=== PATIENT | male | born 1940 | race Caucasian/White ===

== ENCOUNTER → 2018-09-24 07:37 | Outpatient (CLI) | payer MEDICARE, BC, SELFPAY ==
[2018-09-24 08:25] LABS: Add Manual Diff / Slide Review NO; Basophils Percent Auto 0.6 % (0-2); Eosinophils Percent Auto 3.5 % (2-4); Hemoglobin 15.1 g/dL (13.5-17.5); Lymphocytes Percent Auto 16.6 % (25-40); Mean Corpuscular HGB Conc 33.5 % (30-36); Mean Corpuscular Hemoglobin 28.2 PG (26-34); Mean Corpuscular Volume 84.3 fL (80-100); Monocytes Percent Auto 9.5 % (3-14); Neutrophils Absolute Auto 5100 /uL (1500-7000); Neutrophils Percent Auto 69.8 % (50-75); Platelet Count 283 X10^3/uL (150-400); Red Blood Cell Count 5.34 X10^6/uL (4.5-5.9); Red Cell Distribution Width 13.5 % (11.6-14.8); White Blood Cell Count 7.4 X10^3/uL (4.5-11.0)
[2018-09-24 09:14] LABS: Alanine Aminotransferase 30 IU/L (21-72); Albumin 4.5 g/dL (3.5-5.0); Albumin Globulin Ratio 1.5 (1.0-2.8); Alkaline Phosphatase 97 U/L (38-126); Aspartate Aminotransferase 22 IU/L (17-59); BUN Creatinine Ratio 15.4 (6-22); Bilirubin Total 0.6 mg/dL (0.2-1.3); Blood Urea Nitrogen 20 mg/dL (9-20); Calcium 9.5 mg/dL (8.4-10.2); Carbon Dioxide 27 mmol/L (22-32); Chloride 100 mmol/L (98-107); Cholesterol 182 mg/dL (140-199); Estimated Glomerular Filt Rate 53.1 mL/min (>60); Glucose 107 mg/dL (80-110); HDL Cholesterol 55 mg/dL (40-60); HEMOLYSIS < 15 (0-50); LDL Cholesterol Calculated 109 mg/dL (<100); Potassium 4.2 mmol/L (3.4-5.1); Sodium 139 mmol/L (137-145); Total Protein 7.5 g/dL (6.3-8.2); Triglycerides 89 mg/dL (35-150)
[2018-09-24 09:39] LABS: TSH w/ Reflex to FT4 3.38 uIU/mL (0.47-4.68)
== END ==
PROVIDERS: PCP Internal Medicine; Visit Provider Internal Medicine
DX: I10 Essential (primary) hypertension (principal); K21.9 Gastro-esophageal reflux disease without esophagitis
CPT/HCPCS: 36415; 80053; 80061; 84443; 85025

== ENCOUNTER → 2020-02-16 17:00 | Outpatient (CLI) | payer MEDICARE, BC, SELFPAY ==
[2020-02-16 17:40] LABS: Add Manual Diff / Slide Review NO; Basophils Absolute Auto 100 /uL (0-100); Basophils Percent Auto 0.8 % (0-2); Eosinophils Absolute Auto 300 /uL (0-450); Eosinophils Percent Auto 3.6 % (2-4); Hematocrit 39.8 % (41-53); Hemoglobin 13.1 g/dL (13.5-17.5); Lymphocytes Absolute Auto 1200 /uL (1100-4500); Mean Corpuscular HGB Conc 32.8 % (30-36); Mean Corpuscular Hemoglobin 23.8 PG (26-34); Mean Corpuscular Volume 72.7 fL (80-100); Monocytes Absolute Auto 700 /uL (0-900); Monocytes Percent Auto 9.2 % (3-14); Neutrophils Absolute Auto 5200 /uL (1500-7000); Neutrophils Percent Auto 70.4 % (50-75); Platelet Count 250 X10^3/uL (150-400); Red Blood Cell Count 5.47 X10^6/uL (4.5-5.9); Red Cell Distribution Width 17.9 % (11.6-14.8); White Blood Cell Count 7.4 X10^3/uL (4.5-11.0)
[2020-02-16 17:54] LABS: Alanine Aminotransferase 17 IU/L (<50); Albumin 4.7 g/dL (3.5-5.0); Albumin Globulin Ratio 1.5 (1.0-2.8); Alkaline Phosphatase 103 U/L (38-126); Aspartate Aminotransferase 23 IU/L (17-59); Bilirubin Total 0.7 mg/dL (0.2-1.3); Blood Urea Nitrogen 20 mg/dL (9-20); Calcium 9.9 mg/dL (8.4-10.2); Carbon Dioxide 25 mmol/L (22-32); Chloride 101 mmol/L (98-107); Estimated Glomerular Filt Rate 55.4 mL/min (>60); Globulin 3.1 g/dL (1.7-4.1); Glucose 101 mg/dL (80-110); HEMOLYSIS < 15 (0-50); Potassium 4.7 mmol/L (3.4-5.1); Sodium 136 mmol/L (137-145); Total Protein 7.8 g/dL (6.3-8.2)
[2020-02-16 18:40] LABS: TSH w/ Reflex to FT4 2.45 uIU/mL (0.47-4.68)
[2020-02-17 09:07] LABS: HEMOLYSIS < 15 (0-50); Iron 44 ug/dL (49-181)
[2020-02-17 09:17] LABS: Percent Iron Saturation 9 % (20-50); Total Iron Binding Capacity 483 ug/dL (261-462); Transferrin 366 mg/dL (206-381)
== END ==
PROVIDERS: Family Provider Internal Medicine; PCP Internal Medicine; Referring Provider Internal Medicine; Visit Provider Internal Medicine
DX: I10 Essential (primary) hypertension (principal); N18.3 Chronic kidney disease, stage 3 (moderate); R06.02 Shortness of breath
CPT/HCPCS: 36415; 80053; 83540; 83550; 84443; 85025

== ENCOUNTER → 2020-02-23 14:40 | Outpatient (CLI) | payer MEDICARE, BC, SELFPAY ==
[2020-02-24 16:15] LABS: COVID19 Sendout NOT DETECTED (Not Detect)
== END ==
PROVIDERS: Family Provider Internal Medicine; PCP Internal Medicine; Visit Provider Registered Nurse
DX: Z01.812 Encounter for preprocedural laboratory examination (principal)
CPT/HCPCS: 87635

== ENCOUNTER 2020-02-26 12:37 | Day surgery (SDC) | payer MEDICARE, BC, SELFPAY ==
--- NOTE | 2020-02-26 | PATH_ITS ---
[facility] Accession Number: [id number] . 01 Material submitted: . PART A: gastrointestinal site - GASTRIC POLYPS PART B: esophagus - BIOPSY DISTAL ESOPHAGUS . 02 Diagnosis: A. Gastric Polyps: Superficial portions of gastric fundic mucosa x 2 with mildly dilated fundic glands, consistent with fragments of fundic gland polyp x2. Negative for intestinal metaplasia. Negative for dysplasia or malignancy. . B. Biopsy Distal Esophagus: Squamous mucosa with increased intraepithelial eosinophils (up to approximately 12 eosinophils per high-power field). Please see comment. Negative for dysplasia and malignancy. V 02/27/2020 1410 Local . 02 Comment: Part B: There is insufficient histopathologic evidence for a diagnosis of eosinophilic esophagitis. The differential diagnosis includes drug reaction, gastroesophageal reflux, and food allergies. . 02 Electronically signed: . Dinora Serrano MD, Pathologist NPI- [id number] . 01 Gross description: . Part A: GASTRIC POLYPS: Received in formalin are 2 fragment(s) of abad, soft tissue measuring 0.1 x 0.1 x 0.1 cm to 0.3 x 0.2 x 0.2 cm submitted entirely in 1 cassette(s) Part B: BIOPSY DISTAL ESOPHAGUS: Received in formalin are 3 fragment(s) of abad, soft tissue measuring 0.1 x 0.1 x 0.1 cm to 0.3 x 0.2 x 0.2 cm submitted entirely in 1 cassette(s) /AMA 02/27/2020 0009 Local . 02 Pathologist provided ICD-10: K31.7 . 02 CPT . 481587, [id number] Performed at: [address], [place], [place] [id number] MD Wesley Chirinos MD Phone: [phone] Performed at: 02 [facility] [id number] [place] [id number] MD Deanna Otoole MD Phone: [phone]
[2020-02-26 13:11] VITALS: BMI 28.9
[2020-02-26 13:18] VITALS: BP 136/75; PULSE 68; RESP 16; TEMP 36.3; O2SAT 99
[2020-02-26] MEDS: LACTATED RINGERS 1,000 ML 200 ML IV (13:24)
--- NOTE | 2020-02-26 13:58 | PM.PREOP ---
Pre-operative Note COVID-19 COVID-19 status: Negative Result date/Date tested (Pos, Neg/Pending): 02/23/20 Interval Note History & Physical reviewed/Exam performed by Physician: Yes Changes to H&P: No ASA Class (for procedural sedation): II
[2020-02-26] MEDS: LIDOCAINE 4% SOLN 50 ML 20 ML TOP (14:08)
[2020-02-26] MEDS: MIDAZOLAM 5 MG/5 ML VIAL IV (14:09)
[2020-02-26] MEDS: fentaNYL 250 MCG/5 ML INJ IV (14:09)
--- NOTE | 2020-02-26 14:49 | PM.OP.ENDO ---
Operative Date/Time/Diagnoses Date of procedure: 02/26/20 Time of procedure: 14:49 Pre-op diagnosis: Anemia Post-op diagnosis: same Procedure & Clinicians Study performed: Esophagoduodenoscopy Colonoscopy Same procedure as scheduled: Yes Indications: 79-year-old man with new onset microcytic anemia presents for screening EGD and colonoscopy. Surgeon: Arnel Valverde Procedure Notes SCOAP/Timeout: Performed Procedure in detail: Patient placed in left lateral decubitus position. Time out was performed. Procedural sedation was administered with Versed and Fentanyl. A bite block was placed. the scope was inserted into the mouth and advanced through the esophagus and into the stomach. The pylorus was intubated and the duodenum was normal. The scope was retroflexed within the stomach and there was a moderate size hiatal hernia. There were numerous gastric polyps I took several random biopsies of the polyps using the forceps. Hemostasis was observed. The scope was withdrawn into the esophagus the Z line was seen at 35 cm from the incisions. There was mild esophagitis in the distal esophagus and several random biopsies were taken with the forceps. Stomach was desufflated and scope removed. Patient tolerated procedure well. Patient placed in left lateral decubitus position. Time out was performed. Procedural sedation was administered with Versed and Fentanyl. A rectal exam demonstrated external hemorrhoids no internal masses. Colonoscopy scope was placed into the rectum and advanced through the colon to the cecum. The ileocecal valve was identified. The scope was then slowly withdrawn examining colon thoroughly in all directions. The colonoscopy was notable for the following 1. Sigmoid diverticulosis 2. No masses polyps 3. Quality of prep good Scope withdrawal time: 6 Sedation minutes: 30 Findings: polyp (Gastric polyps, mild esophagitis) Specimen(s): other (Gastric polyp, distal esophagus) Impression: Gastric polyps, hiatal hernia, esophagitis Post-procedure Recommendations: Continue medication(s) (Omeprazole) Disposition: same day surgery
[2020-02-26 14:53] VITALS: BP 122/72; PULSE 62; RESP 12; O2SAT 93
[2020-02-26 14:58] VITALS: BP 117/67; PULSE 62; RESP 12; O2SAT 93
[2020-02-26 15:03] VITALS: BP 117/67; PULSE 63; RESP 16; O2SAT 99
[2020-02-26 15:12] VITALS: BP 107/63; PULSE 67; RESP 14; O2SAT 100
== END 2020-02-26 15:25 | disposition home or self-care (01) ==
PROVIDERS: Family Provider Internal Medicine; PCP Internal Medicine; Referring Provider Surgery; Visit Provider Surgery
PROC: 0DJ08ZZ Inspection of Upper Intestinal Tract, Via Natural or Artificial Opening Endoscopic (ICD-10-PCS; CPT 43235; principal; 2020-02-26 13:45)
PROC: 0DJD8ZZ Inspection of Lower Intestinal Tract, Via Natural or Artificial Opening Endoscopic (ICD-10-PCS; CPT 45378; 2020-02-26 13:45)
DX: Z12.11 Encounter for screening for malignant neoplasm of colon (principal); D50.9 Iron deficiency anemia, unspecified; K57.30 Diverticulosis of large intestine without perforation or abscess without bleeding; K31.7 Polyp of stomach and duodenum; K44.9 Diaphragmatic hernia without obstruction or gangrene; K20.9 Esophagitis, unspecified; K64.9 Unspecified hemorrhoids
CPT/HCPCS: 43239; G0121; 99152; 99153; J2250; J3010

== ENCOUNTER → 2020-07-19 14:32 | Outpatient (CLI) | payer MEDICARE, BC, SELFPAY | PROVIDERS: Family Provider Internal Medicine; PCP Internal Medicine; Visit Provider Internal Medicine | DX: R30.0 Dysuria (principal) | CPT/HCPCS: 87077; 87086; 87186 ==

== ENCOUNTER 2020-07-28 12:12 | Emergency (ER) | payer MEDICARE, BC, SELFPAY ==
[2020-07-28] VITALS (7 sets, daily range): BP systolic 124–151; BP diastolic 59–69; PULSE 68–75; RESP 14–18; TEMP 36.5; O2SAT 92–99; BMI 28.5
--- NOTE | 2020-07-28 13:24 | DI.RAD.S_ITS ---
PROCEDURE: XR RIBS RT MIN 3V W CXR 1V INDICATIONS: fall TECHNIQUE: To views of the right ribs were acquired, along with a single view chest. COMPARISON: None. FINDINGS: Surgical changes and devices: None. Bones and chest wall: No fractures or dislocations. No suspicious bony lesions. Overlying soft tissues appear unremarkable. Quality of visualization of the lower ribs in the area of current clinical concern is very limited by overlying upper abdominal structures and also prominent convex rightward scoliosis. Lungs and pleura: No pleural effusions or pneumothorax. Lungs appear clear. Mediastinum: Mediastinal contours appear normal. Heart size is normal. IMPRESSION: No definite fracture found, no pneumothorax seen. Limited study as discussed. Nuclear medicine bone scan follow-up may be warranted if fine usual symptoms persist. Dictated by: Scotty Cote M.D. on 07/28/2020 at 15:26 Approved by: Scotty Cote M.D. on 07/28/2020 at 15:27
[2020-07-28] MEDS: HYDROCODONE/ACET 5/325 TABLET 1 TAB PO (15:46)
[2020-07-28] MEDS: LIDOCAINE PATCH 1 EACH ADH..PATCH TOP (15:47)
--- NOTE | 2020-07-28 16:40 | ED.FALL ---
HPI - Fall <CASH Gruber - Last Filed: 07/28/20 23:35> General Chief Complaint: Fall Stated Complaint: back, right side ribs pain, injury Time Seen by Provider: 07/28/20 15:06 Source: patient Mode of arrival: Ambulatory Limitations: no limitations History of Present Illness HPI Narrative: This is a 80-year-old male, nonsmoker, who has past medical history significant for hypertension, BPH, prostatitis presents to ED with his spouse with chief complain of right lower and posterior rib discomfort after he accidentally tripped and hit right side ribs on the edge of table and fell on right side of body. He denies hitting head or loss of consciousness. Patient denies currently taking anticoagulants. Patient reports pain becomes severe with coughing and movements and rates pain as 8/10 and describes as sharp. Patient denies fever, chills, nausea, vomiting, short of breath, cough, chest pain, dizziness before the fall or currently. Related Data Home Medications Medication Instructions Recorded Confirmed aspirin 81 mg PO QDAY #0 07/20/17 07/19/20 loratadine-pseudoephedrine ER 10 1 tab PO DAILY 09/06/18 07/19/20 mg-240 mg tablet,extended [id number] Previous Rx's Medication Instructions Recorded tadalafil 20 mg tablet 20 mg PO DAILY PRN #7 tab 02/16/20 tamsulosin 0.4 mg capsule 0.4 mg PO QDAY #90 cap 03/18/20 famotidine 20 mg tablet 40 mg PO BEDTIME #60 tab 04/15/20 hydrochlorothiazide 25 mg tablet 25 mg PO DAILY #30 tab 06/16/20 amlodipine 10 mg tablet 10 mg PO DAILY #90 tab 07/10/20 sulfamethoxazole 800 1 tab PO BID #20 tab 07/19/20 mg-trimethoprim 160 mg tablet cyclobenzaprine 5 - 10 mg PO BID PRN #10 tab 07/28/20 hydrocodone-acetaminophen [Herman] 1 tab PO BID PRN #7 tab 07/28/20 lidocaine 1 patch TOP DAILY PRN #30 each 07/28/20 Allergies Allergy/AdvReac Type Severity Reaction Status Date / Time No Known Drug Allergies Allergy Verified 07/19/20 13:50 Review of Systems <CASH Gruber - Last Filed: 07/28/20 23:35> Review of Systems Narrative: General: Denies fever, chills, fatigue, malaise, sweats. Respiratory: Denies dyspnea, cough, wheezing, hemoptysis, sputum. Cardiovascular: Denies chest pain, palpitations, orthopnea, edema. Gastrointestinal: Denies nausea, vomiting, abdominal pain, diarrhea, constipation, melena. : Denies dysuria, frequency, incontinence, hematuria, urinary retention. Musculoskeletal: See HPI Skin: Denies rash, skin lesions, or other. Neurologic: Denies weakness, headache, numbness, change in speech, confusion, seizures, incoordination. 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) History of flexible sigmoidoscopy (Resolved 06/18/14) Hypertension (Chronic 04/13/11) Iron deficiency anemia (Chronic) Keratoacanthoma (Resolved 04/27/17) Left-sided Figueroa's palsy (Resolved) SCCA (squamous cell carcinoma) of skin (Resolved 07/21/09) Scoliosis of lumbosacral spine (Inactive) Spinal stenosis, lumbar region with neurogenic claudication (Resolved) Surgical History History of basal cell carcinoma (BCC) excision (Resolved 07/21/09) History of colon surgery (Acute) History of colonoscopy with polypectomy (Resolved 12/04/13) History of colonoscopy with polypectomy (Resolved 07/20/17) History of lumbar fusion (Resolved 06/07/15) History of squamous cell carcinoma excision (Resolved 07/16/12) Status post epidural steroid injection (Resolved 01/13/15) Status post Mohs surgery (Resolved 04/27/17) Social History household members: spouse occupational status: previously employed Smoking Status: Never smoker alcohol intake: current substance use type: does not use Smoking Status: Never smoker alcohol intake frequency: 0-2 drinks per day Substance Use Type: does not use Exam <CASH Gruber - Last Filed: 07/28/20 23:35> Narrative Exam Narrative: General appearance: well developed, well nourished, in no acute distress. Head: normocephalic, atraumatic, no scalp lesions, non-tender. ENT: Hearing grossly intact. Airway patent. Neck/Thyroid: neck supple, full range of motion, no visible masses or meningeal signs. No JVD, non-tender without lymphadenopathy. Skin: no suspicious rashes, lesions over visible areas. Warm and dry and appropriate color for ethnicity. Heart: no clubbing, no cyanosis, no edema. S1 and S2 normal. RRR w/o murmurs, clicks, or bruits. Lungs: Breathing even and unlabored. No stridor. No accessory muscles used. Able to speak in full sentences. Chest: normal shape and expansion. Tender to palpate on right lower and posterior ribs. No rashes, ecchymosis, erythema, or crepitus. Abdomen: non-obese, non-distended. Neurologic: alert and oriented. Cognitive exam, [employer] and PNS grossly intact on informal exam. Psych: good eye contact, normal affect. Initial Vital Signs Initial Vital Signs: Vital Signs Temperature 97.7 F 07/28/20 12:35 Pulse Rate 69 07/28/20 12:35 Respiratory Rate 17 07/28/20 12:35 Blood Pressure 124/59 L 07/28/20 12:35 Pulse Oximetry 97 07/28/20 12:35 <Casie Salgado DO - Last Filed: 07/29/20 08:04> Initial Vital Signs Initial Vital Signs: Vital Signs Temperature 97.7 F 07/28/20 12:35 Pulse Rate 69 07/28/20 12:35 Respiratory Rate 17 07/28/20 12:35 Blood Pressure 124/59 L 07/28/20 12:35 Pulse Oximetry 97 07/28/20 12:35 Scores <Anshul MolinaCASH - Last Filed: 07/28/20 23:35> GCS [place] coma scale eye opening: Spontaneous [place] coma scale verbal response: Orientated [place] coma scale motor response: Obey commands [place] coma scale total score: 15 Course <CASH Gruber - Last Filed: 07/28/20 23:35> Orders Ordered: Discontinued Medications Hydrocodone Bitart/Acetaminophen (Herman 5/325) 1 tab PO NOW ONE Stop: 07/28/20 15:36 Last Admin: 07/28/20 15:46 Dose: 1 tab Documented by: RSTONE Lidocaine (Lidoderm) 1 each TOP NOW ONE Stop: 07/28/20 15:36 Last Admin: 07/28/20 15:47 Dose: 1 each Documented by: RSTONE Lidocaine (Lidoderm (Remove Patch)) 1 each TOP BEDTIME MICK Vital Signs Vital signs: Vital Signs - 8 hr 07/28/20 15:30 07/28/20 16:13 Pulse Rate 73 71 Respiratory Rate 18 Blood Pressure 150/69 H Pulse Oximetry 96 95 <Casie Salgado DO - Last Filed: 07/29/20 08:04> Orders Ordered: Discontinued Medications Hydrocodone Bitart/Acetaminophen (Herman 5/325) 1 tab PO NOW ONE Stop: 07/28/20 15:36 Last Admin: 07/28/20 15:46 Dose: 1 tab Documented by: RSTONE Lidocaine (Lidoderm) 1 each TOP NOW ONE Stop: 07/28/20 15:36 Last Admin: 07/28/20 15:47 Dose: 1 each Documented by: RSTONE Lidocaine (Lidoderm (Remove Patch)) 1 each TOP BEDTIME MICK Vital Signs Vital signs: Vital Signs - 8 hr 07/28/20 15:30 07/28/20 16:13 Pulse Rate 73 71 Respiratory Rate 18 Blood Pressure 150/69 H Pulse Oximetry 96 95 MDM - Fall <CASH Gruber - Last Filed: 07/28/20 23:35> Differential Diagnosis Differential diagnosis: Likely other (Rib fracture, rib contusion, pneumothorax) Medical Records Attestation: I reviewed the patient's medical records. Imaging Data XR- Ribs and chest RT: Radiologist's Impression: [address] [address] XRay Report Signed Patient: Mohsen Murrieta BMR#: [id number] : 8Acct:[id number] Age/Sex: 80 / MDate of Service: 07/28/20 Loc: ED Accession Number: [id number] Procedure: XR ribs RT min 3V w CXR1V Ordering Provider: Casie Salgado D.O. PROCEDURE: XR RIBS RT MIN 3V W CXR 1V INDICATIONS: fall TECHNIQUE: To views of the right ribs were acquired, along with a single view chest. COMPARISON: None. FINDINGS: Surgical changes and devices: None. Bones and chest wall: No fractures or dislocations. No suspicious bony lesions. Overlying soft tissues appear unremarkable. Quality of visualization of the lower ribs in the area of current clinical concern is very limited by overlying upper abdominal structures and also prominent convex rightward scoliosis. Lungs and pleura: No pleural effusions or pneumothorax. Lungs appear clear. Mediastinum: Mediastinal contours appear normal. Heart size is normal. IMPRESSION: No definite fracture found, no pneumothorax seen. Limited study as discussed. Nuclear medicine bone scan follow-up may be warranted if fine usual symptoms persist. Dictated by: Scotty Cote M.D. on 07/28/2020 at 15:26 Approved by: Scotty Cote M.D. on 07/28/2020 at 15:27 [facility] Narrative Medical decision making narrative: This is this 80 year male who presents to ED with chief complain of right lower and posterior rib pain after he accidentally tripped and fell on the corner of heavy table 2 days ago. Patient denies dyspnea, productive, fever or chills. Lung sounds are clear to auscultate bilaterally with out increased work of breathing. O2 sat range from 92-98% in room air. Physical exam is unremarkable. Chest and rib x-ray does not show pneumonia and no definite fracture due to limited study by overlying upper abdominal structure and also prominent convex right word scoliosis. Patient medicated with lidocaine patch on affected site and 1 Herman in ED. respiratory therapist consulted to teach I/S machine for deep breathing exercises to continue 10 times every hour while his awake to prevent pneumonia. Explained to patient that whether patient has rib fracture or not the treatment is the same for pain management. Patient advised to use [id number] Tylenol and or Motrin as needed for discomfort as baseline discomfort and to use Flexeril and Herman as needed for severe pain with strict medication precautions for sedation. Advised not to concurrently use Flexeril and Herman for the same reason. Return precautions were discussed with patient and he verbalized understanding in agreement with the treatment plan. Discharge Plan Departure Patient Disposition: Home Clinical Impression: Contusion of rib on right side Qualifiers: Encounter type: initial encounter Qualified Code(s): S20.211A - Contusion of right front wall of thorax, initial encounter Fall Qualifiers: Encounter type: initial encounter Qualified Code(s): W19.XXXA - Unspecified fall, initial encounter Discharge Date/Time: 07/28/20 16:20 Instructions: DI for Rib Contusion Activity Restrictions/Additional Instructions: You have been diagnosed with [right side rib contusion. X-ray does not show obvious fracture at this time.]. What to do: *Take your medications as directed. You can continue with Aleve as needed. You can add Tylenol 650 mg up to 3 to 4 times a day as needed for pain. For severe pain can use Herman 1 tab in addition to Tylenol. Flexeril for muscle relaxant and you can use this as well as needed. Lidocaine patch on affected site as needed for pain. The patch stays on for 12 hours and off for 12 hours. Flexeril and Herman are both causing sedation. Please do not drive, drink alcohol, or operate heavy equipments. Try to avoid taking these to medication at the same time since he can cause increase in sedation. Also, eat can cause constipation so please take precautions. Please use I/S machine 10 times a day while your awake to prevent pneumonia while splitting right side ribs. This medication have been transmitted to [facility]. *Follow up with your primary care provider in 2-3 days, call for an appointment. Let them know you were seen in the ED and that we asked you to be seen in follow up. *Return to ED if you have any new, worsening, or concerning symptoms, such as [breathing difficulty, chest pain, fever, productive cough, worsening pain or any acute concerns]. Prescriptions: New lidocaine 5 % adhesive patch,medicated 1 patch TOP DAILY PRN (Reason: pain) Qty: 30 RF: 0 hydrocodone-acetaminophen [Herman] 5-325 mg tablet 1 tab PO BID PRN (Reason: pain) Qty: 7 RF: 0 cyclobenzaprine 5 mg tablet 5 - 10 mg PO BID PRN (Reason: muscle spasm) Qty: 10 RF: 0 No Action aspirin 81 MG tablet,delayed release (DR/EC) 81 mg PO QDAY Qty: 0 RF: 0 tamsulosin [Flomax] 0.4 mg capsule 0.4 mg PO QDAY Qty: 90 RF: 1 hydrochlorothiazide 25 mg tablet 25 mg PO DAILY Qty: 30 RF: 3 amlodipine 10 mg tablet 10 mg PO DAILY Qty: 90 RF: 1 loratadine-pseudoephedrine [Claritin-D 24 Hour] 10-240 mg tablet extended release 24 hr 1 tab PO DAILY RF: 0 tadalafil [Cialis] 20 mg tablet 20 mg PO DAILY PRN (Reason: sexual activity) Qty: 7 RF: 4 famotidine 20 mg tablet 40 mg PO BEDTIME Qty: 60 RF: 3 sulfamethoxazole-trimethoprim 800-160 mg tablet 1 tab PO BID Qty: 20 RF: 0 Referrals: Yaniv Fontana MD [Primary Care Provider] - <Casie Salgado DO - Last Filed: 07/29/20 08:04> Cosign ED Attending Cosignature Attestation: I was immediately available in the department for consultation. This documentation has been reviewed. Supervised by Casie Salgado DO
== END 2020-07-28 16:20 | disposition home or self-care (01) ==
PROVIDERS: Emergency Provider Nurse Practitioner Family; Family Provider Internal Medicine; PCP Internal Medicine
DX: S20.211A Contusion of right front wall of thorax, initial encounter (principal); I10 Essential (primary) hypertension; W19.XXXA Unspecified fall, initial encounter
CPT/HCPCS: 71101; 99283; 99284

== ENCOUNTER → 2020-09-11 10:26 | Outpatient (CLI) | payer MEDICARE, BC, SELFPAY | PROVIDERS: Family Provider Internal Medicine; PCP Internal Medicine; Visit Provider Physician Assistant | DX: R30.9 Painful micturition, unspecified (principal) | CPT/HCPCS: 87077; 87086; 87186 ==

== ENCOUNTER → 2022-03-02 06:57 | Outpatient (CLI) | payer MEDICARE, BC, SELFPAY ==
[2022-03-02 08:42] LABS: Alanine Aminotransferase 17 IU/L (<50); Albumin 4.8 g/dL (3.5-5.0); Albumin Globulin Ratio 1.5 (1.0-2.8); Alkaline Phosphatase 83 U/L (38-126); Aspartate Aminotransferase 22 IU/L (17-59); BUN Creatinine Ratio 19.3 (6-22); Bilirubin Total 1.1 mg/dL (0.2-1.3); Blood Urea Nitrogen 26 mg/dL (9-20); Calcium 9.6 mg/dL (8.4-10.2); Carbon Dioxide 29 mmol/L (22-32); Chloride 98 mmol/L (98-107); Cholesterol 180 mg/dL (140-199); Estimated Glomerular Filt Rate 52 mL/min (>60); Globulin 3.1 g/dL (1.7-4.1); Glucose 107 mg/dL (80-110); HDL Cholesterol 59 mg/dL (40-60); HEMOLYSIS < 15 (0-50); LDL Cholesterol Calculated 97 mg/dL (<100); Potassium 4.2 mmol/L (3.4-5.1); Sodium 135 mmol/L (137-145); Total Protein 7.9 g/dL (6.3-8.2); Triglycerides 118 mg/dL (35-150)
== END ==
PROVIDERS: Family Provider Internal Medicine; PCP Internal Medicine; Referring Provider Internal Medicine; Visit Provider Internal Medicine
DX: I10 Essential (primary) hypertension (principal); K20.90 Esophagitis, unspecified without bleeding; K21.9 Gastro-esophageal reflux disease without esophagitis; N13.8 Other obstructive and reflux uropathy; N40.1 Benign prostatic hyperplasia with lower urinary tract symptoms
CPT/HCPCS: 36415; 80053; 80061

== ENCOUNTER → 2022-03-19 09:34 | Outpatient (CLI) | payer MEDICARE, BC, SELFPAY | PROVIDERS: Family Provider Internal Medicine; PCP Internal Medicine; Visit Provider Physician Assistant | DX: R30.0 Dysuria (principal) | CPT/HCPCS: 87077; 87086; 87186 ==

== ENCOUNTER → 2022-07-19 14:23 | Outpatient (CLI) | payer MEDICARE, BC, SELFPAY | PROVIDERS: Family Provider Internal Medicine; PCP Internal Medicine; Visit Provider Nurse Practitioner Family | DX: R30.0 Dysuria (principal) | CPT/HCPCS: 87077; 87086; 87186 ==

== ENCOUNTER → 2022-08-30 10:48 | Outpatient (CLI) | payer MEDICARE, BC, SELFPAY | PROVIDERS: Family Provider Internal Medicine; PCP Internal Medicine; Visit Provider Nurse Practitioner Family | DX: R30.0 Dysuria (principal) | CPT/HCPCS: 87077; 87086; 87186 ==

== ENCOUNTER → 2023-09-24 14:54 | Outpatient (CLI) | payer MEDICARE, BC, SELFPAY ==
[2023-09-24 16:08] LABS: Add Manual Diff / Slide Review NO; Basophils Absolute Auto 0 /uL (0-100); Basophils Percent Auto 0.6 % (0-2); Eosinophils Absolute Auto 100 /uL (0-450); Eosinophils Percent Auto 1.6 % (2-4); Hematocrit 39.9 % (41-53); Lymphocytes Absolute Auto 1000 /uL (1100-4500); Lymphocytes Percent Auto 13.3 % (25-40); Mean Corpuscular Hemoglobin 30.1 PG (26-34); Mean Corpuscular Volume 86.1 fL (80-100); Monocytes Absolute Auto 600 /uL (0-900); Monocytes Percent Auto 8.6 % (3-14); Neutrophils Absolute Auto 5600 /uL (1500-7000); Neutrophils Percent Auto 75.9 % (50-75); Platelet Count 244 X10^3/uL (150-400); Red Blood Cell Count 4.64 X10^6/uL (4.5-5.9); Red Cell Distribution Width 13.5 % (11.6-14.8); White Blood Cell Count 7.3 X10^3/uL (4.5-11.0)
[2023-09-24 16:22] LABS: Alanine Aminotransferase 24 IU/L (<50); Albumin 4.5 g/dL (3.5-5.0); Albumin Globulin Ratio 1.3 (1.0-2.8); Alkaline Phosphatase 71 U/L (38-126); Aspartate Aminotransferase 28 IU/L (17-59); BUN Creatinine Ratio 26.8 (6-22); Bilirubin Total 1.1 mg/dL (0.2-1.3); Blood Urea Nitrogen 30 mg/dL (9-20); Carbon Dioxide 28 mmol/L (22-32); Chloride 98 mmol/L (98-107); Estimated Glomerular Filt Rate > 60 mL/min (>60); Globulin 3.5 g/dL (1.7-4.1); Glucose 94 mg/dL (80-110); HEMOLYSIS 34 (0-50); Potassium 4.2 mmol/L (3.4-5.1); Sodium 135 mmol/L (137-145)
== END ==
PROVIDERS: Family Provider Internal Medicine; PCP Internal Medicine; Referring Provider Internal Medicine; Visit Provider Internal Medicine
DX: D50.9 Iron deficiency anemia, unspecified (principal); K20.90 Esophagitis, unspecified without bleeding; N18.30 Chronic kidney disease, stage 3 unspecified; I10 Essential (primary) hypertension
CPT/HCPCS: 36415; 80053; 85025

== ENCOUNTER 2025-04-05 10:28 | Emergency (ER) | payer MEDICARE, BC, SELFPAY ==
[2025-04-05] VITALS (9 sets, daily range): BP systolic 134–166; BP diastolic 63–75; PULSE 56–78; RESP 18; TEMP 36.8; O2SAT 86–99; BMI 27.1
--- NOTE | 2025-04-05 11:51 | DI.RAD.S_ITS ---
PROCEDURE: XR SHOULDER RT MIN 2V INDICATIONS: fall TECHNIQUE: 3 views of the shoulder were acquired. COMPARISON: None. FINDINGS: Bones: No fractures or dislocations. Degenerative changes of the acromioclavicular and glenohumeral joints are shown. No suspicious bony lesions. Visualized ribs appear intact. Soft tissues: No suspicious soft tissue calcifications. IMPRESSION: No acute bony abnormality. Dictated by: Columba Thomas M.D. on 04/05/2025 at 11:50 Approved by: Columba Thomas M.D. on 04/05/2025 at 11:52
--- NOTE | 2025-04-05 11:51 | DI.CT.S_ITS ---
PROCEDURE: CT HEAD/BRAIN WO CON INDICATIONS: head trauma TECHNIQUE: Noncontrast 4.5 mm thick angled axial sections acquired from the foramen magnum to the vertex, with coronal and sagittal reformats. For radiation dose reduction, the following was used: automated exposure control, adjustment of mA and/or kV according to patient size. COMPARISON: None. FINDINGS: Image quality: Diagnostic. CSF spaces: Basal cisterns are patent. No extra-axial fluid collections. The ventricles are symmetric in size and shape. Brain: No intracranial bleeds or mass effect. There is cerebral volume loss, with resultant ventricular and sulcal prominence. There are periventricular and deep white matter chronic small vessel ischemic changes. There is intracranial internal carotid artery atherosclerosis. Skull and face: Calvarium and visualized facial bones appear intact, without suspicious lesions. Sinuses: Visualized sinuses and mastoids are clear. IMPRESSION: No acute intracranial pathology. Dictated by: Columba Thomas M.D. on 04/05/2025 at 11:19 Approved by: Columba Thomas M.D. on 04/05/2025 at 11:21
--- NOTE | 2025-04-05 11:52 | DI.RAD.S_ITS ---
[facility] ROCEDURE: XR WRIST RT MIN 3V INDICATIONS: fall TECHNIQUE: 4 views of the wrist were acquired. COMPARISON: None. FINDINGS: Bones: There is an ulnar styloid fracture with displacement of the fracture fragment . No other fractures or dislocations. No suspicious bony lesions. Degenerative changes are seen throughout the wrist Soft tissues: No suspicious soft tissue calcifications. IMPRESSION: Age-indeterminate ulnar styloid fracture. Correlate with point tenderness over this area. Dictated by: Columba Thomas M.D. on 04/05/2025 at 11:52 Approved by: Columba Thomas M.D. on 04/05/2025 at 11:54
[2025-04-05] MEDS: BACITRACIN OINT 0.9 GM PCKT 4 APPLIC TOP (11:54)
[2025-04-05] MEDS: LIDOCAINE/PRILOCAINE 5 GM TOP (12:44)
[2025-04-05] MEDS: SILVER NITRATE STICK 1 EACH TOP (13:28)
--- NOTE | 2025-04-22 17:35 | ED.FALL ---
HPI - Fall General Chief Complaint: Fall Stated Complaint: Fell down stairs; hit head and LT hand/arm cuts Time Seen by Provider: 04/05/25 11:08 Source: patient Mode of arrival: Ambulatory History of Present Illness HPI Narrative: 85 yo m prior to arrival via paramedics had a fall down 2-3 steps and hit his head and left hand and arm, he has some abrasions over left hand and arm but no open wound or bleeding from his head currently, he is at baseline as far as mental status is currently. he takes a baby asa daily. no other symtpoms. Related Data Home Medications ?Medication ?Instructions ?Recorded ?Confirmed aspirin 81 mg tablet,delayed 81 mg PO QDAY ##0 07/20/17 04/13/25 release Previous Rx's ?Medication ?Instructions ?Recorded omeprazole 40 mg capsule,delayed 40 mg PO BID #180 caps 03/02/25 release tamsulosin 0.4 mg capsule (Flomax) 0.8 mg (2 x 0.4 mg) PO QDAY #180 03/02/25 caps citalopram 10 mg tablet 10 mg PO DAILY #90 tabs 03/12/25 fludrocortisone 0.1 mg tablet 0.1 mg PO DAILY #90 tabs 04/13/25 Allergies Allergy/AdvReac Type Severity Reaction Status Date / Time No Known Drug Allergies Allergy Verified 04/13/25 11:07 Review of Systems Review of Systems ROS Unobtainable: All systems reviewed & are unremarkable except as noted in HPI and below Patient History Medical History (Updated 04/22/25 @ 17:52 by David Ceja MD) Fracture of ulnar styloid Depression Stool incontinence BPH w urinary obs/LUTS Iron deficiency anemia Esophagitis Elevated PSA Chronic renal failure, stage 3 (moderate) History of adenomatous polyp of colon Hypertension (04/13/11) History of flexible sigmoidoscopy (06/18/14) 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) SCCA (squamous cell carcinoma) of skin (07/21/09) BCC (basal cell carcinoma of skin) (07/16/12) Scoliosis of lumbosacral spine Spinal stenosis, 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 GERD (gastroesophageal reflux disease) 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) Surgical History History of colon surgery History of colonoscopy with polypectomy (07/20/17) History of colonoscopy with polypectomy (12/04/13) Status post Mohs surgery (04/27/17) History of basal cell carcinoma (BCC) excision (07/21/09) History of squamous cell carcinoma excision (07/16/12) History of lumbar fusion (06/07/15) Status post epidural steroid injection (01/13/15) Social History household members: spouse occupational status: previously employed alcohol intake: current substance use type: does not use Smoking Status: Never smoker alcohol intake frequency: 0-2 drinks per day Exam Narrative Exam Narrative: gen: head has mild contusion over back of head without any active bleeding currently but does have open 2-3mm wound on top of scalp area eyes: pupils both equally reactive neck: supple, no lymphadenopathy cv: regular rate rhythm lungs: clear to auscultation abd: soft, nontender, nondistended, pos bs ext: left arm: has scabbing and open wound area not actively bleeding, left wrist some pain with rotation/flexion , nv intact Initial Vital Signs Initial Vital Signs: Vital Signs Pulse Rate 78 04/05/25 10:33 Blood Pressure 138/72 04/05/25 10:33 Pulse Oximetry 98 04/05/25 10:33 Procedures Laceration Repair Laceration 1: Time of procedure: 14:00 Site: scalp Size (cm): 3.0 Description: linear and clean Depth: simple, single layer Local Anesthetic: other anesthetic (prilocaine cream) Amount of anesthesia used (mL): 2 Pre-repair: wound explored, irrigated extensively and deep structures intact Skin layer closed with: eunice (2) Course Course Course Narrative: will get imaging to rule out cranial bleed or fracture, pain stable at the moment , will require 2 eunice for laceration over scalp area Orders Ordered: Discontinued Medications Bacitracin (Bacitracin Oint 0.9 Gm Pckt) 4 applic TOP NOW ONE Stop: 04/05/25 11:52 Last Admin: 04/05/25 11:54 Dose: 4 applic Documented By: LM Lidocaine/Prilocaine (Lidocaine/Prilocaine 5 Gm) 5 gm TOP NOW ONE Stop: 04/05/25 12:35 Last Admin: 04/05/25 12:44 Dose: 5 gm Documented By: GILMA Silver Nitrate/Potassium Nitrate (Silver Nitrate Stick) 1 each TOP NOW ONE Stop: 04/05/25 13:25 Last Admin: 04/05/25 13:28 Dose: 1 each Documented By: GILMA MDM - Fall Differential Diagnosis Differential diagnosis: Likely syncope, compression fracture, concussion with loss of consciousness and other (intracranial injury ) Imaging Data CT scan - head: Radiologist's Impression: No acute intracranial pathology. Dictated by: Columba Thomas M.D. on 04/05/2025 at 11:19 Approved by: Columba Thomas M.D. on 04/05/2025 at 11:21 Extremity x-ray #1: Radiologist's Impression: Age-indeterminate ulnar styloid fracture. Correlate with point tenderness over this area. Dictated by: Columba Thomas M.D. on 04/05/2025 at 11:52 Approved by: Columba Thomas M.D. on 04/05/2025 at 11:54 [facility] Narrative Medical decision making narrative: advised that there is no intracranial bleed noted, can f/up for staple removal in 5-7 days with pcp, age indeterminate ulnar styloid fracture mentioned, brace given , can re xray in one week if not healing and fup with orthopedic surgery Discharge Plan Departure Patient Disposition: Home Clinical Impression: Laceration of head Qualifiers: Encounter type: initial encounter Location of open wound of head: scalp Foreign body presence: without foreign body Qualified Code(s): S01.01XA - Laceration without foreign body of scalp, initial encounter Fracture of ulnar styloid Qualifiers: Encounter type: initial encounter Fracture type: closed Fracture alignment: nondisplaced Laterality: left Qualified Code(s): S52.615A - Nondisplaced fracture of left ulna styloid process, initial encounter for closed fracture Instructions: DI for Forearm Fracture, DI for Laceration Repair -- [place] Activity Restrictions/Additional Instructions: Keep wound area clean, do not rinse and wash in 24 hours. Follow-up sooner for any signs of infection of redness warmth or drainage. Follow-up in 1 week for staple removal. Follow-up on ulnar styloid fracture of his right wrist if pain in that area persists with Orthopedic surgery. Most likely a chronic fracture. Prescriptions: No Action aspirin 81 MG tablet,delayed release (DR/EC) 81 mg PO QDAY Qty: 0 tamsulosin [Flomax] 0.4 mg capsule 0.8 mg PO QDAY Qty: 180 3RF omeprazole 40 mg capsule,delayed release(DR/EC) 40 mg PO BID Qty: 180 3RF citalopram 10 mg tablet 10 mg PO DAILY Qty: 90 3RF fludrocortisone 0.1 mg tablet 0.1 mg PO DAILY Qty: 90 3RF Referrals: Yaniv Fontana MD [Primary Care Provider, Internal Medicine] Stand Alone Forms: Patient Portal/API
== END 2025-04-05 13:54 | disposition home or self-care (01) ==
PROVIDERS: Emergency Provider Family Medicine; Family Provider Internal Medicine; PCP Internal Medicine
DX: S01.01XA Laceration without foreign body of scalp, initial encounter (principal); S52.615A Nondisplaced fracture of left ulna styloid process, initial encounter for closed fracture; S60.512A Abrasion of left hand, initial encounter; W10.9XXA Fall (on) (from) unspecified stairs and steps, initial encounter
CPT/HCPCS: 12002; 70450; 73030; 73110; 99284

== ENCOUNTER → 2025-04-06 10:46 | Outpatient (CLI) | payer MEDICARE, BC, SELFPAY ==
[2025-04-06 11:16] LABS: Add Manual Diff / Slide Review NO; Hematocrit 36.6 % (41-53); Hemoglobin 12.9 g/dL (13.5-17.5); Lymphocytes Absolute Auto 600 /uL (1100-4500); Mean Corpuscular HGB Conc 35.2 % (30-36); Mean Corpuscular Hemoglobin 29.3 PG (26-34); Mean Corpuscular Volume 83.3 fL (80-100); Platelet Count 265 X10^3/uL (150-400)
[2025-04-06 11:40] LABS: Alanine Aminotransferase 19 IU/L (<50); Albumin 4.5 g/dL (3.5-5.0); Albumin Globulin Ratio 1.5 (1.0-2.8); Alkaline Phosphatase 98 U/L (38-126); Blood Urea Nitrogen 26 mg/dL (9-20); Calcium 9.8 mg/dL (8.4-10.2); Carbon Dioxide 28 mmol/L (22-32); Chloride 93 mmol/L (98-107); Estimated Glomerular Filt Rate > 60 mL/min (>60); Globulin 3.1 g/dL (1.7-4.1); Glucose 102 mg/dL (70-99); HEMOLYSIS < 15 (0-50); Magnesium 2.0 mg/dL (1.6-2.3); Potassium 3.6 mmol/L (3.4-5.1); Sodium 132 mmol/L (137-145); Total Protein 7.6 g/dL (6.3-8.2)
[2025-04-06 13:19] LABS: Appearance Urine UA CLOUDY; Bilirubin Urine UA NEGATIVE (NEGATIVE); Color Urine UA YELLOW; Glucose Urine UA NEGATIVE (Negative); Ketones Urine UA TRACE (NEGATIVE); Leukocyte Esterase Urine UA 2+ (NEGATIVE); Nitrite Urine UA NEGATIVE (Negative); Occult Blood Urine UA TRACE-INTACT (Negative); Protein Urine UA TRACE (Negative); Specific Gravity Urine UA 1.020 (1.000-1.035); Urobilinogen Urine UA 1.0 E.U./dL (0.2); pH Urine UA 6.0 (4.5-8.0)
[2025-04-06 13:37] LABS: Culture Indicated Urine Specimen Cultured
== END ==
PROVIDERS: Family Provider Internal Medicine; PCP Internal Medicine; Referring Provider Internal Medicine; Visit Provider Internal Medicine
DX: I10 Essential (primary) hypertension (principal); N18.31 Chronic kidney disease, stage 3a; N39.0 Urinary tract infection, site not specified
CPT/HCPCS: 36415; 80053; 81001; 83735; 85025; 87077; 87086

== ENCOUNTER → 2025-04-27 11:44 | Outpatient (CLI) | payer MEDICARE, BC, SELFPAY ==
[2025-04-27 13:41] LABS: Appearance Urine UA CLEAR; Bilirubin Urine UA NEGATIVE (NEGATIVE); Color Urine UA YELLOW; Glucose Urine UA NEGATIVE (Negative); Ketones Urine UA NEGATIVE (NEGATIVE); Leukocyte Esterase Urine UA TRACE (NEGATIVE); Nitrite Urine UA NEGATIVE (Negative); Occult Blood Urine UA 1+ (Negative); Protein Urine UA TRACE (Negative); Specific Gravity Urine UA 1.015 (1.000-1.035); Urobilinogen Urine UA 1.0 E.U./dL (0.2); pH Urine UA 6.0 (4.5-8.0)
[2025-04-27 13:47] LABS: Culture Indicated Urine Specimen Cultured
== END ==
PROVIDERS: Family Provider Internal Medicine; PCP Internal Medicine; Referring Provider Internal Medicine; Visit Provider Internal Medicine
DX: N40.1 Benign prostatic hyperplasia with lower urinary tract symptoms (principal); N13.8 Other obstructive and reflux uropathy
CPT/HCPCS: 81001; 87086

== ENCOUNTER 2025-07-06 11:46 | Emergency (ER) | payer MEDICARE, BC, SELFPAY ==
[2025-07-06] VITALS (13 sets, daily range): BP systolic 168–199; BP diastolic 70–123; PULSE 56–66; RESP 16–20; TEMP 36.8; O2SAT 97–100; BMI 26.4
--- NOTE | 2025-07-06 12:23 | DI.RAD.S_ITS ---
PROCEDURE: XR CHEST 1V INDICATIONS: Chest Pain TECHNIQUE: One view of the chest was acquired. COMPARISON: None. FINDINGS: Surgical changes and devices: None. Lungs and pleura: Lungs are clear. No pleural effusions or pneumothorax. Mediastinum: Mediastinal contours appear normal. Heart size is normal. Calcifications of the thoracic aorta. Bones and chest wall: No suspicious bony lesions. Dextroscoliosis. Overlying soft tissues appear unremarkable. IMPRESSION: No acute cardiopulmonary abnormality is seen. Dictated by: Leonard Catherine M.D. on 07/06/2025 at 13:05 Approved by: Leonard Catherine M.D. on 07/06/2025 at 13:06
--- NOTE | 2025-07-06 12:23 | EKG_ITS ---
[address] [address] Test Date: 2025-07-06 Pat Name: Mohsen Murrieta Department: Room: Gender: Male End User Consultant: LISSET : 1940 Requested By: Order Number: [id number] Reading MD: Yaniv Fontana MD Measurements Intervals [place] Rate: 58 P: 101 CT: 192 QRS: 51 QRSD: 130 T: 51 QT: 444 QTc: 435 Interpretive Statements Sinus bradycardia Right bundle branch block NO PRIOR TRACING Electronically Signed On 07-06-2025 16:18:03 PDT by Yaniv Fontana MD
[2025-07-06 12:51] LABS: Add Manual Diff / Slide Review NO; Hematocrit 37.9 % (41-53); Hemoglobin 12.9 g/dL (13.5-17.5); Lymphocytes Absolute Auto 600 /uL (1100-4500); Mean Corpuscular HGB Conc 34.2 % (30-36); Mean Corpuscular Hemoglobin 28.8 PG (26-34); Mean Corpuscular Volume 84.1 fL (80-100); Platelet Count 242 X10^3/uL (150-400)
[2025-07-06 12:54] LABS: INR 1.0 (0.9-1.3); Prothrombin Time 11.5 SECONDS (9.4-12.5)
[2025-07-06 12:57] LABS: PTT Partial Thromboplastin Tim 30 SECONDS (25.1-36.5)
[2025-07-06 13:00] LABS: Alanine Aminotransferase 18 IU/L (<50); Albumin 4.4 g/dL (3.5-5.0); Albumin Globulin Ratio 1.3 (1.0-2.8); Alkaline Phosphatase 85 U/L (38-126); Blood Urea Nitrogen 24 mg/dL (9-20); Calcium 9.4 mg/dL (8.4-10.2); Carbon Dioxide 26 mmol/L (22-32); Chloride 101 mmol/L (98-107); Creatine Kinase 116 U/L (55-170); Estimated Glomerular Filt Rate > 60 mL/min (>60); Globulin 3.4 g/dL (1.7-4.1); Glucose 99 mg/dL (70-99); HEMOLYSIS 26 (0-50); Lipase 85 U/L (23-300); Magnesium 2.1 mg/dL (1.6-2.3); Potassium 4.2 mmol/L (3.4-5.1); Sodium 135 mmol/L (137-145); Total Protein 7.8 g/dL (6.3-8.2)
[2025-07-06 13:10] LABS: NT-proBNP (BNP-Adult 18+) 569 pg/mL (<450); Troponin I < 0.012 ng/mL (0.01-0.034)
[2025-07-06] MEDS: ASPIRIN 81 MG CHEW TAB 324 MG PO (13:51)
--- NOTE | 2025-07-06 14:21 | PC.NURSE ---
Pt drove himself to primary care with no scheduled apt and was unsure of why he was there. 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 When this RN approached him to provide care, Pt stated, this is dumb. can anyone tell me why im here? This RN explained he is here because he complained of L sided chest pain to which he said, no i didnt, and i dont need to be here. im leaving. consulted to verify decisional capacity. Pt A/O x4- deemed to have capacity to leave.
--- NOTE | 2025-07-06 14:42 | DI.CT.S_ITS ---
PROCEDURE: CT HEAD/BRAIN WO CON INDICATIONS: fall with confusion TECHNIQUE: Noncontrast 4.5 mm thick angled axial sections acquired from the foramen magnum to the vertex, with coronal and sagittal reformats. For radiation dose reduction, the following was used: automated exposure control, adjustment of mA and/or kV according to patient size. COMPARISON: [facility], CT, CT HEAD/BRAIN WO CON, 04/05/2025, 11:54. FINDINGS: Image quality: Diagnostic. CSF spaces: Basal cisterns are patent. No extra-axial fluid collections. The ventricles are symmetric in size and shape. Brain: No intracranial bleeds or mass effect. There is cerebral volume loss, with resultant ventricular and sulcal prominence. There are periventricular and deep white matter chronic small vessel ischemic changes. There is intracranial internal carotid artery atherosclerosis. Skull and face: Calvarium and visualized facial bones appear intact, without suspicious lesions. Sinuses: Visualized sinuses and mastoids are clear. IMPRESSION: No acute intracranial pathology. Dictated by: Singh Shea M.D. on 07/06/2025 at 15:29 Approved by: Singh Shea M.D. on 07/06/2025 at 15:30
--- NOTE | 2025-07-06 14:43 | PC.NURSE ---
Md to bedside again to ask Pt for consent to CT. Pt becomes verbally aggressive, suspicious of staff, and is unable to state the risks of leaving AMA. Decisional capacity is in question and Pt not allowed to leave per MD.
--- NOTE | 2025-07-06 15:57 | ED_ITS ---
HPI - General Adult General Chief complaint: Dizziness Stated complaint: dizziness w/frequent falls at home (alone) Time Seen by Provider: 07/06/25 15:18 Source: patient Mode of arrival: Wheelchair History of Present Illness HPI narrative: 85-year-old gentleman with increasing falls recently when living independently at home with progressive cognitive issues of which his primary care physician daughter and son are aware. His is currently at [facility] facility in a 2 bedroom space. Patient presented to urgent care this morning noting that he had a bruise to his left small finger after a fall slipping outside in the grass today. He is not complaining of any other injuries. Because of his confusion and multiple bruises he was escorted to the emergency department for further evaluation. Patient notes that he is unsteady, feels like he is always ?on a boat?. He does have a cane. He is still driving and apparently drove himself to urgent care earlier today. He states that his doctor took him off all of his medications recently. He is not complaining any pain, nausea, vomiting, abdominal discomfort constipation or diarrhea. No recent fevers, no headaches. Related Data Home Medications ?Medication ?Instructions ?Recorded ?Confirmed aspirin 81 mg tablet,delayed 81 mg PO QDAY ##0 7 07/06/25 release Previous Rx's ?Medication ?Instructions ?Recorded omeprazole 40 mg capsule,delayed 40 mg PO BID #180 cap s 03/02/25 release fludrocortisone 0.1 mg tablet 0.1 mg PO DAILY #90 tabs 04/13/25 tamsulosin 0.4 mg capsule (Flomax) 0.4 mg PO BID #180 caps 04/27/25 quetiapine 25 mg tablet 25 mg PO BEDTIME #90 tabs Allergies Allergy/AdvReac Type Severity Reaction Status Date / Time No Known Drug Allergies Allergy Verified 06/15/25 14:13 Review of Systems Review of Systems Narrative: Pertinent positive and negative findings as per HPI 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) SCCA (squamous cell carcinoma) of skin (07/21/09) BCC (basal cell carcinoma of skin) (07/16/12) Scoliosis of lumbosacral spine Spinal stenosis, 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 GERD (gastroesophageal reflux disease) 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) Surgical History History of colon surgery History of colonoscopy with polypectomy (07/20/17) History of colonoscopy with polypectomy (12/04/13) Status post Mohs surgery (04/27/17) History of basal cell carcinoma (BCC) excision (07/21/09) History of squamous cell carcinoma excision (07/16/12) History of lumbar fusion (06/07/15) Status post epidural steroid injection (01/13/15) Social History household members: spouse occupational status: previously employed Smoking Status: Never smoker alcohol intake: current substance use type: does not use Smoking Status: Never smoker alcohol intake frequency: 0-2 drinks per day Exam Initial Vital Signs Initial Vital Signs: Vital Signs Temperature 98.3 F 07/06/25 11:52 Pulse Rate 61 07/06/25 11:52 Respiratory Rate 18 07/06/25 11:52 Blood Pressure 168/73 H 07/06/25 11:52 Pulse Oximetry 98 07/06/25 11:52 Oxygen Delivery Method Room Air 07/06/25 11:52 General: Frail, older appearing currently is alert and oriented to person, time, place, events and home address HEENT: Moist mucous membranes, normal sclera with reactive pupils, Respiratory: Lungs are clear to auscultation, no wheezing no rales no rhonchi. Full and symmetrical air movement Cardiac: Regular rate and rhythm no murmurs no bruits Abdomen: Soft, nontender, no rebound or guarding, no flank pain Skin: Multiple areas of bruising and contusion with very thin skin. A significant bruising to the ulnar side of his left hand extending into the left small finger. Neurologic: Slowed wide-based unsteady gait. Nonfocal exam. Currently oriented x3 Extremities: Upper extremity bruising bruising to the left small finger but unrestricted and nonpainful range of motion with the small finger. Psych: Cooperative, poor overall insight Course Orders Ordered: ED Orders 07/06/25 12:23 XR chest 1V Stat EKG-12 Lead Stat 07/06/25 12:35 Complete Blood Count AUTO DIFF Stat Comprehensive Metabolic Panel Stat Lipase Stat Magnesium Stat NT-proBNP (BNP-Adult 18+) Stat PTT Partial Thromboplastin Jeronimo Stat Prothrombin Time INR Stat Troponin & CK Cardiac Panel Stat 07/06/25 14:42 CT head/brain wo con Stat Discontinued Medications Aspirin (Aspirin 81 Mg Chew Tab) 324 mg PO NOW ONE Stop: 07/06/25 12:24 Last Admin: 07/06/25 13:51 Dose: 243 mg Documented By: ADITYA Vital Signs Vital signs: Vital Signs - 8 hr 07/06/25 11:52 07/06/25 13:41 07/06/25 13:42 Temperature 98.3 F Pulse Rate 61 57 L 56 L Respiratory Rate 18 Blood Pressure 168/73 H Pulse Oximetry 98 100 99 Oxygen Delivery Method Room Air Room Air 07/06/25 13:42 07/06/25 14:00 07/06/25 14:01 Temperature Pulse Rate 64 63 Respiratory Rate Blood Pressure 176/79 H Pulse Oximetry 97 100 Oxygen Delivery Method 07/06/25 14:01 07/06/25 14:30 07/06/25 14:30 Temperature Pulse Rate 66 Respiratory Rate 18 Blood Pressure 180/79 H 191/84 H Pulse Oximetry 100 Oxygen Delivery Method Medical Decision Making Lab Data 07/06/25 12:35 07/06/25 12:35 Labs: Lab Results 07/06/25 Range/Units 12:35 WBC 7.9 (4.5-11.0) X10^3/uL RBC 4.50 (4.5-5.9) X10^6/uL Hgb 12.9 L (13.5-17.5) g/dL Hct 37.9 L (41-53) % MCV 84.1 (80-100) fL MCH 28.8 (26-34) PG MCHC 34.2 (30-36) % RDW 14.4 (11.6-14.8) % Plt Count 242 (150-400) X10^3/uL Neut % (Auto) 84.8 H (50-75) % Lymph % (Auto) 7.0 L (25-40) % [place] % (Auto) 7.1 (3-14) % Eos % (Auto) 0.7 L (2-4) % Baso % (Auto) 0.4 (0-2) % Neut # (Auto) 6700 (1662-1070) /uL Lymph # (Auto) 600 L (8583-4274) /uL Jefferson # (Auto) 600 (0-900) /uL Eos # (Auto) 100 (0-450) /uL Baso # (Auto) 0 (0-100) /uL PT 11.5 (9.4-12.5) SECONDS INR 1.0 (0.9-1.3) APTT 30 (25.1-36.5) SECONDS Sodium 135 L (137-145) mmol/L Potassium 4.2 (3.4-5.1) mmol/L Chloride 101 (98-107) mmol/L Carbon Dioxide 26 (22-32) mmol/L BUN 24 H (9-20) mg/dL Creatinine 1.09 (0.66-1.25) mg/dL Estimated GFR > 60 (>60) mL/min BUN/Creatinine Ratio 22.0 (6-22) Glucose 99 (70-99) mg/dL Calcium 9.4 (8.4-10.2) mg/dL Magnesium 2.1 (1.6-2.3) mg/dL Total Bilirubin 1.1 (0.2-1.3) mg/dL AST 28 (17-59) IU/L ALT 18 (<50) IU/L Alkaline Phosphatase 85 (38-126) U/L Total Creatine Kinase 116 (55-170) U/L Troponin I < 0.012 (0.01-0.034) ng/mL NT-Pro-B Natriuret Pep 569 H (<450) pg/mL Total Protein 7.8 (6.3-8.2) g/dL Albumin 4.4 (3.5-5.0) g/dL Globulin 3.4 (1.7-4.1) g/dL Albumin/Globulin Ratio 1.3 (1.0-2.8) Lipase 85 (23-300) U/L MDM Narrative Medical decision making narrative: CC: Falls, concern for increasing cognitive impairment Complicating co-morbidities: Currently living independently, currently taking no medications Data collected from: patient, nursing staff, daughter who lives in the [place] area Social determinants of health that may influence the patients condition: Progressive cognitive decline and ragged determine ism to continue at home Medical records reviewed: Notes from his primary care physician approximately a month ago reviewed similar discussions at that time Differential considered: Acute infection, intracranial hemorrhage, other infection or metastatic disease that could be impairing his cognitive decline, progressive baseline cognitive deficit Exam documented above, pertinent findings include: Seems to be much more alert than previously described, conversant, with his cane is able to get out of bed and to the bathroom with difficulty Lab Test results independently reviewed as above. Pertinent findings: Baseline labs do not show evidence of infection, anemia, electrolyte abnormalities, renal dysfunction, liver dysfunction No evidence of acute coronary BNP is age-related appropriate Independently reviewed EKG: EKG shows sinus bradycardia at a rate of 58 without acute ischemic changes Imaging studies independently reviewed: Today he has not had advanced imaging studies done CT scan of his head is unremarkable Re-evaluations and discussions: Long discussion with the patient's daughter. She is aware of his cognitive decline she has been talking with her brother they have been working on options and they would actually very much like [facility] in the 2nd bedroom in the apartment where his currently resides. [facility] is open to him moving in. We talked about concern with driving. Discussed suggestions like doing something to the car engine so that is simply can not start, his daughter notes that if he lost the keys there would be significant anxiety. She is well aware that he does not have any acute medical reasons for hospitalization at this time and is also well aware that she is going to need to do more planning and discussions as his cognitive issues continue to rapidly decline. At this time, with no indications for hospitalization he is currently awake alert and seems fairly appropriate. We will discharge him home before he has any difficulty with sundowning. His daughter will be following up. Discharge Plan Departure Patient Disposition: Home Clinical Impression: Unsteady gait, Frequent falls, Cognitive impairment Contusion of finger of left hand Qualifiers: Encounter type: initial encounter Finger: little finger Damage to nail status: without damage Qualified Code(s): S60.052A - Contusion of left little finger without damage to nail, initial encounter Activity Restrictions/Additional Instructions: Thank you for coming in today I know you were initially concerned about your pinky finger, it is bruised and it will heal. In urgent care the nurse's very concerned that you were unsteady and seemed confused which is why she brought you to the emergency department In the emergency department we did a thorough medical workup and there was no sign of infection, kidney problems, liver problems. We did do a CT scan of your brain as it looks like you had not had imaging done previously and there is no bleeding, fractures no tumors. I am concerned with your overall memory loss and I am very concerned that still driving and living alone are putting you at very high risk for falls that will end up with fractures, internal bleeding, possibly injuring others and . I would recommend that you and your daughter continue to talk about moving into the extra room with your at [facility]. If you find that you are getting worse or develop any new symptoms, please feel free to return to the emergency department for further evaluation. Prescriptions: No Action aspirin 81 MG tablet,delayed release (DR/EC) 81 mg PO QDAY Qty: 0 omeprazole 40 mg capsule,delayed release(DR/EC) 40 mg PO BID Qty: 180 3RF quetiapine 25 mg tablet 25 mg PO BEDTIME Qty: 90 3RF fludrocortisone 0.1 mg tablet 0.1 mg PO DAILY Qty: 90 3RF tamsulosin [Flomax] 0.4 mg capsule 0.4 mg PO BID Qty: 180 3RF Referrals: Yaniv Fontana MD [Primary Care Provider, Internal Medicine] Stand Alone Forms: Patient Portal/API
[2025-07-06 16:45] LABS: Culture Indicated Urine Cult Not Indicated
--- NOTE | 2025-07-06 17:32 | CM.SWNOTE ---
ED TENT FINISHER Assessment Note: Pt is a 85yo male, resident of [place], is seen in the ED for falls, confusion. Pt lives in a house alone, his is currently in Memory Care and pt visits everyday. Pt's Primary Care Provider is Dr. Yaniv Fontana and insurance is Medicare and Out of State [employer]. Reviewed chart and discussed with multidisciplinary team pt's medical status and initial discharge needs. Per ED Provider, pt is medically cleared to discharge home and is AOx3, no other medical reason to remain in the hospital at this time, especially with pt preference to discharge home. Per ED RN, pt eager to discharge home and could not report why he presented to the [facility] today. It was noted that he could not verbalize understanding of AMA risks. Per [facility] In [facility] report, pt went to the clinic and did not have an appt, could not state why he drive to the clinic. Walk in Clinic noted in report that pt should be a social admit. TENT FINISHER spoke with pt daughter, Dilma, who lives in [place]. She states she has been working with her brother who lives in [place] in a plan to get their parents closer to them; they are finding barriers to paying for this because pt still has capacity and waxes and wanes with agreeing to sell their home. Pt daughter notes pt has fallen multiple times just in this month and he is still driving even though his PCP has strongly recommended for him to cease driving. Pt daughter states she has been thinking about finding the funds for both patient and his to be at [facility] until they are able to secure placement in the [facility]. TENT FINISHER connected daughter with ED Provider. Dilma, ph# [phone]. TENT FINISHER spoke with Freight Forwarder, Zee, at [facility], who reports they could review pt to be admitted at their facility if family agrees. Freight Forwarder notes that pt's main barrier to continuing with reviewing for his placement at their facility is pt's unwillingness to let go of driving privileges. Freight Forwarder states they have placed APS referrals in the past for pt because of this. TENT FINISHER identifies a recent referral to [facility] from pt PCP office. TENT FINISHER calls [facility] and spoke with Yaniv; it is reported that pt was referred and pt declined their services on 06/17/2025. TENT FINISHER identifies a recent referral to [facility] from pt PCP office. TENT FINISHER spoke with [facility] and noted pt's presentation to ED - [facility] states he has been attempting to connect with pt but has not been able to due to pt not being at home. He notes he will meet with pt in ED today. TENT FINISHER entered room to meet with patient, introduced self and role with [facility]. Pt is found to be confused at times but able to somewhat track thoughts in assessment. Pt states he has been working with his daughter to find a placement closer to her with his for care but reports the biggest barrier is cost; we have to sell the house first. Pt agreeable to continuing collaboration with [facility] as well as a home health referral. TENT FINISHER provided contact information with [facility] to pt. Pt verbalized understanding. TENT FINISHER sent referral to [facility] via secure email, uploaded signed orders to pt chart. As a mandated hansard reporter per RCW [phone] I have given confidential information about the patient to Adult Protective Services intake team. Intake #[id number]. TENT FINISHER reviews this with ED provider Dr. Pierre who indicates agreement and understanding. Plan: Pt to discharge home with self transport, pt will be escorted by [facility] to his car at the walk in clinic. Pt to follow up with [facility] and PCP. NNEKA Pugh
== END 2025-07-06 16:30 | disposition home or self-care (01) ==
PROVIDERS: Emergency Medicine; Emergency Provider Emergency Medicine; Family Provider Internal Medicine; PCP Internal Medicine
DX: S60.052A Contusion of left little finger without damage to nail, initial encounter (principal); R26.81 Unsteadiness on feet; R41.89 Other symptoms and signs involving cognitive functions and awareness; R29.6 Repeated falls; R00.1 Bradycardia, unspecified; W19.XXXA Unspecified fall, initial encounter
CPT/HCPCS: 70450; 71045; 80053; 81003; 81015; 82550; 83690; 83735; 83880; 84484; 85025; 85610; 85730; 93005; 99283; 99284

== ENCOUNTER 2025-07-26 09:59 | Inpatient (IN) | payer MEDICARE, BC, SELFPAY ==
[2025-07-26] VITALS (28 sets, daily range): BP systolic 147–218; BP diastolic 79–105; PULSE 54–71; RESP 5–28; TEMP 36.4–37.1; O2SAT 98–100; BMI 27.1
--- NOTE | 2025-07-26 10:32 | ED_ITS ---
HPI - GI Bleed General Chief complaint: GI Bleed Stated complaint: WIC: rectal bleeding, weakness Time Seen by Provider: 07/26/25 10:15 Source: patient Mode of arrival: Wheelchair History of Present Illness HPI Narrative: 85 years old male came today complaining of bloody diarrhea since last night and took Imodium so no further diarrhea since 2:00 a.m.. He denied any fever, nausea vomiting, abdominal pain, runny nose, sore throat, coughing, chest pain, shortness of breath, dizziness, loss of consciousness, urine problem. Related Data Home Medications ?Medication ?Instructions ?Recorded ?Confirmed aspirin 81 mg tablet,delayed 81 mg PO QDAY ##0 7 07/06/25 release Previous Rx's ?Medication ?Instructions ?Recorded omeprazole 40 mg capsule,delayed 40 mg PO BID #180 cap s 03/02/25 release fludrocortisone 0.1 mg tablet 0.1 mg PO DAILY #90 tabs 04/13/25 tamsulosin 0.4 mg capsule (Flomax) 0.4 mg PO BID #180 caps 04/27/25 quetiapine 25 mg tablet 25 mg PO BEDTIME #90 tabs amoxicillin 875 mg-potassium 1 tab PO BID #14 tabs 06/11 clavulanate 125 mg tablet Allergies Allergy/AdvReac Type Severity Reaction Status Date / Time No Known Drug Allergies Allergy Verified 06/15/25 14:13 Review of Systems Review of Systems Narrative: Positive for diarrhea with blood. Negative for fever, nausea vomiting, chest pain, shortness of breath, dizziness, loss of consciousness, urine problem. 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) SCCA (squamous cell carcinoma) of skin (07/21/09) BCC (basal cell carcinoma of skin) (07/16/12) Scoliosis of lumbosacral spine Spinal stenosis, 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 GERD (gastroesophageal reflux disease) 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) Surgical History History of colon surgery History of colonoscopy with polypectomy (07/20/17) History of colonoscopy with polypectomy (12/04/13) Status post Mohs surgery (04/27/17) History of basal cell carcinoma (BCC) excision (07/21/09) History of squamous cell carcinoma excision (07/16/12) History of lumbar fusion (06/07/15) Status post epidural steroid injection (01/13/15) Social History household members: spouse occupational status: previously employed alcohol intake: current substance use type: does not use alcohol intake frequency: 0-2 drinks per day Exam Narrative Exam Narrative: GENERAL: Awake alert without acute distress. NECK: Trachea midline. Non tender CARDIOVASCULAR: Regular rate and rhythm without murmurs, gallops, or rubs. RESPIRATORY: Clear to auscultation. Breath sounds equal bilaterally. No wheezes, rales, or rhonchi. GASTROINTESTINAL: Abdomen soft, non-tender, nondistended. Rectal exam showed brown stool without black stool or blood in her stool. Negative bedside stool occult blood test. EXTREMITIES: No edema or joint tenderness. BACK: Nontender without deformity or crepitance. No flank tenderness. NEURO: Awake alert at the baseline. Moving all extremities. SKIN: No rash or erythema of visible areas Initial Vital Signs Initial Vital Signs: Vital Signs Temperature 97.6 F 07/26/25 10:15 Pulse Rate 61 07/26/25 10:15 Respiratory Rate 14 07/26/25 10:15 Blood Pressure 199/95 H 07/26/25 10:15 Pulse Oximetry 98 07/26/25 10:15 Oxygen Delivery Method Room Air 07/26/25 10:15 Course Orders Ordered: ED Orders 07/26/25 10:17 Complete Blood Count AUTO DIFF Stat Comprehensive Metabolic Panel Stat PTT Partial Thromboplastin Jeronimo Stat Prothrombin Time INR Stat 07/26/25 10:18 Consult to DISTRIBUTION FIELD ENGINEER - Tuber Machine Operator Helper Stat 07/26/25 11:03 Type and Screen Stat 07/26/25 11:55 CT abdomen pelvis w con Stat 07/26/25 13:00 Urine Culture Stat Urine Microscopic Stat 07/26/25 15:26 CT head/brain wo con Stat Ondansetron HCl (Ondansetron 4 Mg/2 Ml Inj) 4 mg IV NOW PRN PRN Reason: Nausea And Vomiting Ondansetron HCl (Ondansetron 4 Mg Odt) 4 mg PO NOW PRN PRN Reason: Nausea And Vomiting Vital Signs Vital signs: Vital Signs - 8 hr 07/26/25 10:15 07/26/25 11:00 07/26/25 11:01 Temperature 97.6 F Pulse Rate 61 58 L Respiratory Rate 14 13 Blood Pressure 199/95 H 176/82 H Pulse Oximetry 98 100 Oxygen Delivery Method Room Air 07/26/25 11:30 07/26/25 11:30 07/26/25 12:00 Temperature Pulse Rate 56 L Respiratory Rate 12 Blood Pressure 192/86 H 190/88 H Pulse Oximetry 99 Oxygen Delivery Method 07/26/25 12:00 07/26/25 12:16 07/26/25 12:16 Temperature Pulse Rate 56 L 63 Respiratory Rate 13 18 Blood Pressure 175/80 H Pulse Oximetry 99 100 Oxygen Delivery Method 07/26/25 12:30 07/26/25 12:30 07/26/25 13:00 Temperature Pulse Rate 58 L 65 Respiratory Rate 12 14 Blood Pressure 178/83 H Pulse Oximetry 100 100 Oxygen Delivery Method 07/26/25 13:30 07/26/25 13:30 07/26/25 14:00 Temperature Pulse Rate 57 L 60 Respiratory Rate 14 18 Blood Pressure 198/91 H Pulse Oximetry 98 100 Oxygen Delivery Method 07/26/25 14:01 07/26/25 14:01 07/26/25 14:30 Temperature Pulse Rate 59 L 54 L Respiratory Rate 15 12 Blood Pressure 185/79 H Pulse Oximetry 100 99 Oxygen Delivery Method 07/26/25 14:30 07/26/25 15:00 07/26/25 15:01 Temperature Pulse Rate 70 66 Respiratory Rate Blood Pressure 195/87 H Pulse Oximetry 100 100 Oxygen Delivery Method 07/26/25 15:01 07/26/25 15:30 07/26/25 15:30 Temperature Pulse Rate 55 L Respiratory Rate Blood Pressure 198/91 H 203/90 H Pulse Oximetry 100 Oxygen Delivery Method 07/26/25 15:42 07/26/25 15:42 07/26/25 15:56 Temperature Pulse Rate 59 L 60 Respiratory Rate Blood Pressure 188/88 H Pulse Oximetry 100 100 Oxygen Delivery Method 07/26/25 15:56 07/26/25 15:58 07/26/25 15:58 Temperature Pulse Rate 63 Respiratory Rate Blood Pressure 191/87 H 202/82 H Pulse Oximetry 100 Oxygen Delivery Method 07/26/25 16:00 07/26/25 16:00 Temperature Pulse Rate 64 Respiratory Rate Blood Pressure 188/84 H Pulse Oximetry 100 Oxygen Delivery Method MDM - GI Bleed Lab Data 07/26/25 10:17 07/26/25 10:17 Labs: Lab Results 07/26/25 07/26/25 07/26/25 Range/Units 10:17 11:03 13:00 WBC 6.1 (4.5-11.0) X10^3/uL RBC 4.61 (4.5-5.9) X10^6/uL Hgb 13.4 L (13.5-17.5) g/dL Hct 38.8 L (41-53) % MCV 84.2 (80-100) fL MCH 29.0 (26-34) PG MCHC 34.4 (30-36) % RDW 13.9 (11.6-14.8) % Plt Count 265 (150-400) X10^3/uL Neut % (Auto) 76.8 H (50-75) % Lymph % (Auto) 13.7 L (25-40) % Gonzales % (Auto) 7.6 (3-14) % Eos % (Auto) 1.2 L (2-4) % Baso % (Auto) 0.7 (0-2) % Neut # (Auto) 4700 (4201-2908) /uL Lymph # (Auto) 800 L (0260-7103) /uL Gonzales # (Auto) 500 (0-900) /uL Eos # (Auto) 100 (0-450) /uL Baso # (Auto) 0 (0-100) /uL PT 11.6 (9.4-12.5) SECONDS INR 1.0 (0.9-1.3) APTT 31 (25.1-36.5) SECONDS Sodium 140 (137-145) mmol/L Potassium 4.1 (3.4-5.1) mmol/L Chloride 104 (98-107) mmol/L Carbon Dioxide 25 (22-32) mmol/L BUN 31 H (9-20) mg/dL Creatinine 1.01 (0.66-1.25) mg/dL Estimated GFR > 60 (>60) mL/min BUN/Creatinine Ratio 30.7 H (6-22) Glucose 101 H (70-99) mg/dL Calcium 9.6 (8.4-10.2) mg/dL Total Bilirubin 1.1 (0.2-1.3) mg/dL AST 33 (17-59) IU/L ALT 17 (<50) IU/L Alkaline Phosphatase 118 (38-126) U/L Total Protein 8.1 (6.3-8.2) g/dL Albumin 4.7 (3.5-5.0) g/dL Globulin 3.4 (1.7-4.1) g/dL Albumin/Globulin Ratio 1.4 (1.0-2.8) Urine RBC 10-30/hpf H (0-5/HPF) Urine WBC 10-30/hpf H (0-5/HPF) Ur Squamous Epith Cells 0-1 /hpf (0-5/HPF) Urine Bacteria Few (2-10) H (None) Vol Urine Centrifuged 10ml (spun) Blood Type A Positive Antibody Screen Negative Urine Dip Bedside Urine Glucose Negative Bedside Urine Bilirubin - Negative Bedside Urine Ketone - Negative Urine Specific [place] 1.015 Bedside Urine Occult Blood +++ Bedside Urine pH 6.5 Bedside Urine Protein - Negative Bedside Urine Urobilinogen - Negative Bedside Urine Nitrite - Negative Bedside Urine Leukocytes + [address] scan - abdomen/pelvis: Radiologist's Impression: PROCEDURE: CT ABDOMEN PELVIS W CON INDICATIONS: Bloody diarrhea TECHNIQUE: After the administration of intravenous contrast, axial sections acquired from the lung bases to the pubic symphysis. Coronal and sagittal reformats were performed. For radiation dose reduction, the following was used: automated exposure control, adjustment of mA and/or kV according to patient size. COMPARISON: None. FINDINGS: Image quality: Diagnostic. 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 ABDOMEN: Liver: No solid mass. Gallbladder: No radiopaque gallstones or wall thickening. Biliary ducts: No biliary dilation. Pancreas: No ductal dilation. Spleen: Size is within normal limits. Adrenal Glands: No adrenal nodules. Kidneys and Ureters: No hydronephrosis. No solid mass. No complex renal cystic lesion which requires follow up. Stomach and Bowel: Normal colonic caliber, without significant wall thickening. Stool burden is moderately large. Peritoneum: No abnormal intraperitoneal fluid. No free air. Ventral Wall: No significant ventral hernia. Abdominal Nodes: No retroperitoneal or mesenteric adenopathy by size criteria. Vessels: Aorta and inferior vena cava are normal in size. PELVIS: Pelvic Organs: The prostate is enlarged and heterogeneous with mass effect on the distended bladder.. Bladder: No bladder wall thickening, accounting for underdistention. Pelvic Nodes: No enlarged lymph nodes. Miscellaneous: No inguinal hernias are seen. Bones: No aggressive osseous abnormality. Postsurgical and degenerative changes of the lumbar spine are shown. IMPRESSION: No acute abdominal process. No findings suspicious for active extravasation. Chronic findings as above. Dictated by: Columba Thomas M.D. on 07/26/2025 at 11:33 Approved by: Columba Thomas M.D. on 07/26/2025 at 11:38 [facility] Narrative Medical decision making narrative: 85 years old male came today complaining of bloody diarrhea since last night and took Imodium so no further diarrhea since 2:00 a.m.. He denied any fever, nausea vomiting, abdominal pain, runny nose, sore throat, coughing, chest pain, shortness of breath, dizziness, loss of consciousness, urine problem. His CV exam, lung exam, abdominal exam were normal. He is alert and awake. Answering questions appropriately. Rectal exam showed brown stool without blood or black stool. Negative besides stool occult blood test. His CBC was normal. His BMP show BUN 31 otherwise normal BMP. His LFT was normal. His CT scan abdomen and pelvis showed no acute finding. His UA showed UTI. He was sent home with Augmentin. Our director social saw him and plan to refer him to his PCP for long-term care. Later discussion with our hospitalist since the patient has been more confused and failure to thrive and lived by himself at home. He was accepted to the hospital. I ordered him Rocephin. Our director social already saw the patient. Discharge Plan Departure Patient Disposition: Admitted As Inpatient Clinical Impression: Acute UTI, Diarrhea, Adult failure to thrive
[2025-07-26 10:39] LABS: Add Manual Diff / Slide Review NO; Hematocrit 38.8 % (41-53); Hemoglobin 13.4 g/dL (13.5-17.5); Lymphocytes Absolute Auto 800 /uL (1100-4500); Mean Corpuscular HGB Conc 34.4 % (30-36); Mean Corpuscular Hemoglobin 29.0 PG (26-34); Mean Corpuscular Volume 84.2 fL (80-100); Platelet Count 265 X10^3/uL (150-400)
[2025-07-26 10:41] LABS: INR 1.0 (0.9-1.3); Prothrombin Time 11.6 SECONDS (9.4-12.5)
[2025-07-26 10:44] LABS: PTT Partial Thromboplastin Tim 31 SECONDS (25.1-36.5)
[2025-07-26 10:45] LABS: Alanine Aminotransferase 17 IU/L (<50); Albumin 4.7 g/dL (3.5-5.0); Albumin Globulin Ratio 1.4 (1.0-2.8); Alkaline Phosphatase 118 U/L (38-126); Blood Urea Nitrogen 31 mg/dL (9-20); Calcium 9.6 mg/dL (8.4-10.2); Carbon Dioxide 25 mmol/L (22-32); Chloride 104 mmol/L (98-107); Estimated Glomerular Filt Rate > 60 mL/min (>60); Globulin 3.4 g/dL (1.7-4.1); Glucose 101 mg/dL (70-99); HEMOLYSIS < 15 (0-50); Potassium 4.1 mmol/L (3.4-5.1); Sodium 140 mmol/L (137-145); Total Protein 8.1 g/dL (6.3-8.2)
--- NOTE | 2025-07-26 11:19 | PC.NURSE ---
REport received, care assumed
--- NOTE | 2025-07-26 11:55 | DI.CT.S_ITS ---
PROCEDURE: CT ABDOMEN PELVIS W CON INDICATIONS: Bloody diarrhea TECHNIQUE: After the administration of intravenous contrast, axial sections acquired from the lung bases to the pubic symphysis. Coronal and sagittal reformats were performed. For radiation dose reduction, the following was used: automated exposure control, adjustment of mA and/or kV according to patient size. COMPARISON: None. FINDINGS: Image quality: Diagnostic. 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 ABDOMEN: Liver: No solid mass. Gallbladder: No radiopaque gallstones or wall thickening. Biliary ducts: No biliary dilation. Pancreas: No ductal dilation. Spleen: Size is within normal limits. Adrenal Glands: No adrenal nodules. Kidneys and Ureters: No hydronephrosis. No solid mass. No complex renal cystic lesion which requires follow up. Stomach and Bowel: Normal colonic caliber, without significant wall thickening. Stool burden is moderately large. Peritoneum: No abnormal intraperitoneal fluid. No free air. Ventral Wall: No significant ventral hernia. Abdominal Nodes: No retroperitoneal or mesenteric adenopathy by size criteria. Vessels: Aorta and inferior vena cava are normal in size. PELVIS: Pelvic Organs: The prostate is enlarged and heterogeneous with mass effect on the distended bladder.. Bladder: No bladder wall thickening, accounting for underdistention. Pelvic Nodes: No enlarged lymph nodes. Miscellaneous: No inguinal hernias are seen. Bones: No aggressive osseous abnormality. Postsurgical and degenerative changes of the lumbar spine are shown. IMPRESSION: No acute abdominal process. No findings suspicious for active extravasation. Chronic findings as above. Dictated by: Columba Thomas M.D. on 07/26/2025 at 11:33 Approved by: Columba Thomas M.D. on 07/26/2025 at 11:38
--- NOTE | 2025-07-26 14:57 | PC.NURSE ---
Tawer for rectal exam. Patient tolerated well. Guaiac negative at bedside.
--- NOTE | 2025-07-26 15:26 | DI.CT.S_ITS ---
PROCEDURE: CT HEAD/BRAIN WO CON INDICATIONS: Intermittent confusion TECHNIQUE: Noncontrast 4.5 mm thick angled axial sections acquired from the foramen magnum to the vertex, with coronal and sagittal reformats. For radiation dose reduction, the following was used: automated exposure control, adjustment of mA and/or kV according to patient size. COMPARISON: [facility], CT, CT HEAD/BRAIN WO CON, 07/06/2025, 14:49. FINDINGS: Image quality: Diagnostic. CSF spaces: Basal cisterns are patent. No extra-axial fluid collections. The ventricles are symmetric in size and shape. Brain: No intracranial bleeds or mass effect. There is cerebral volume loss, with resultant ventricular and sulcal prominence. There are periventricular and deep white matter chronic small vessel ischemic changes. There is intracranial internal carotid artery atherosclerosis. Skull and face: Calvarium and visualized facial bones appear intact, without suspicious lesions. Sinuses: Visualized sinuses and mastoids are clear. IMPRESSION: No acute intracranial pathology. Dictated by: Columba Thomas M.D. on 07/26/2025 at 14:49 Approved by: Columba Thomas M.D. on 07/26/2025 at 14:51
--- NOTE | 2025-07-26 15:36 | PC.NURSE ---
Pt up for discharge, this service writer advisor is very concerned for discharging to self. Pt has an unsteady gait and is at high risk for falls. Pt also has high blood pressure and has not refilled his amlodipine & chlorthalidone. His ED blood pressures have been running 175-200 systolic, Pt also was taking nitrofurantoin in April and a BActrium DS in March, both for UTI with E.Coli. HE has an open APS case and SW is going to report another incident of ED visit. Unknown what his home/food situation, however, it doesn't appear to this RN that he is able to clean and cook himself healthy meals. Pt is still driving. ED provider and CRN aware of this RN's concern.
--- NOTE | 2025-07-26 16:11 | PC.NURSE ---
CIVIL RIGHTS REPRESENTATIVE note: this residential living assistant assisted pt. in ambulating with FWW, pt. reported no dizziness or lightheadedness for ambulation trial. pt. ambulated 20 ft in [place] and returned to pt. room. call light within reach of pt. pt. encouraged to use call light for needs. rn notified.
--- NOTE | 2025-07-26 16:39 | PM.HP.IH.1 ---
History of Present Illness History of Present Illness Date Patient Seen: 07/26/25 Chief complaint: WIC: rectal bleeding, weakness Narrative: 85-year-old male with a past medical history of neurocognitive changes hypotension depression BPH chronic renal failure lumbar degenerative disc disease and Figueroa's palsy. Presented to the emergency department with concerns about blood in his stool and diarrhea. Patient had laboratory testing done CT imaging and urinalysis. During his hospital stay it was noted that he had increasing neurocognitive changes with confusion. Patient apparently lives at home by himself. The social work msw got involved. They were concerned about patient going home with his level of confusion and unsafe discharge. His laboratory testing revealed a hemoglobin of 13.4 BUN creatinine is stable with a creatinine of 1.1 in his EGFR is 60. His urinalysis shows an elevated white blood cell count of 10 to 30 with urine bacteria. Previous urine cultures show E coli. During the emergency room workup and evaluation he had a CT scan of his abdomen and pelvis which was unchanged and neuroimaging which also was unchanged. At they were going to discharge him patient began continued to have more and more confusion and they were concerned about a safe discharge plan and elected to admit to the hospital because of his mental status changes and his urinary tract infection. 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) SCCA (squamous cell carcinoma) of skin (07/21/09) BCC (basal cell carcinoma of skin) (07/16/12) Scoliosis of lumbosacral spine Spinal stenosis, 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 GERD (gastroesophageal reflux disease) 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) Surgical History History of colon surgery History of colonoscopy with polypectomy (07/20/17) History of colonoscopy with polypectomy (12/04/13) Status post Mohs surgery (04/27/17) History of basal cell carcinoma (BCC) excision (07/21/09) History of squamous cell carcinoma excision (07/16/12) History of lumbar fusion (06/07/15) Status post epidural steroid injection (01/13/15) Social History household members: spouse occupational status: previously employed alcohol intake: current substance use type: does not use Meds Home Medications and Allergies Home Medications ?Medication ?Instructions ?Recorded ?Confirmed ?Type aspirin 81 mg tablet,delayed 81 mg PO QDAY ##0 07/20/17 07/06/25 History release omeprazole 40 mg capsule,delayed 40 mg PO BID #180 caps 03/02/25 07/26/25 Rx release fludrocortisone 0.1 mg tablet 0.1 mg PO DAILY #90 tabs 04/13/25 07/26/25 Rx tamsulosin 0.4 mg capsule (Flomax) 0.4 mg PO BID #180 caps 04/27/25 07/26/25 Rx quetiapine 25 mg tablet 25 mg PO BEDTIME #90 tabs 05/12/25 07/06/25 Rx amoxicillin 875 mg-potassium 1 tab PO BID #14 tabs 07/26/25 Rx clavulanate 125 mg tablet Allergies Allergy/AdvReac Type Severity Reaction Status Date / Time No Known Drug Allergies Allergy Verified 06/15/25 14:13 Exam Vital Signs (past 8 hours): - 07/26/25 10:15 07/26/25 11:00 07/26/25 11:01 Temperature 97.6 F Pulse Rate 61 58 L Pulse Rate [Orthostatic Lying] Pulse Rate [Orthostatic Sitting] Pulse Rate [Orthostatic Standing] Respiratory Rate 14 13 Blood Pressure 199/95 H 176/82 H Blood Pressure [Orthostatic Lying] Blood Pressure [Orthostatic Sitting] Blood Pressure [Orthostatic Standing] Pulse Oximetry 98 100 Oxygen Delivery Method Room Air 07/26/25 11:30 07/26/25 11:30 07/26/25 12:00 Temperature Pulse Rate 56 L Pulse Rate [Orthostatic Lying] Pulse Rate [Orthostatic Sitting] Pulse Rate [Orthostatic Standing] Respiratory Rate 12 Blood Pressure 192/86 H 190/88 H Blood Pressure [Orthostatic Lying] Blood Pressure [Orthostatic Sitting] Blood Pressure [Orthostatic Standing] Pulse Oximetry 99 Oxygen Delivery Method 07/26/25 12:00 07/26/25 12:16 07/26/25 12:16 Temperature Pulse Rate 56 L 63 Pulse Rate [Orthostatic Lying] Pulse Rate [Orthostatic Sitting] Pulse Rate [Orthostatic Standing] Respiratory Rate 13 18 Blood Pressure 175/80 H Blood Pressure [Orthostatic Lying] Blood Pressure [Orthostatic Sitting] Blood Pressure [Orthostatic Standing] Pulse Oximetry 99 100 Oxygen Delivery Method 07/26/25 12:30 07/26/25 12:30 07/26/25 13:00 Temperature Pulse Rate 58 L 65 Pulse Rate [Orthostatic Lying] Pulse Rate [Orthostatic Sitting] Pulse Rate [Orthostatic Standing] Respiratory Rate 12 14 Blood Pressure 178/83 H Blood Pressure [Orthostatic Lying] Blood Pressure [Orthostatic Sitting] Blood Pressure [Orthostatic Standing] Pulse Oximetry 100 100 Oxygen Delivery Method 07/26/25 13:30 07/26/25 13:30 07/26/25 14:00 Temperature Pulse Rate 57 L 60 Pulse Rate [Orthostatic Lying] Pulse Rate [Orthostatic Sitting] Pulse Rate [Orthostatic Standing] Respiratory Rate 14 18 Blood Pressure 198/91 H Blood Pressure [Orthostatic Lying] Blood Pressure [Orthostatic Sitting] Blood Pressure [Orthostatic Standing] Pulse Oximetry 98 100 Oxygen Delivery Method 07/26/25 14:01 07/26/25 14:01 07/26/25 14:30 Temperature Pulse Rate 59 L 54 L Pulse Rate [Orthostatic Lying] Pulse Rate [Orthostatic Sitting] Pulse Rate [Orthostatic Standing] Respiratory Rate 15 12 Blood Pressure 185/79 H Blood Pressure [Orthostatic Lying] Blood Pressure [Orthostatic Sitting] Blood Pressure [Orthostatic Standing] Pulse Oximetry 100 99 Oxygen Delivery Method 07/26/25 14:30 07/26/25 15:00 07/26/25 15:01 Temperature Pulse Rate 70 66 Pulse Rate [Orthostatic Lying] Pulse Rate [Orthostatic Sitting] Pulse Rate [Orthostatic Standing] Respiratory Rate Blood Pressure 195/87 H Blood Pressure [Orthostatic Lying] Blood Pressure [Orthostatic Sitting] Blood Pressure [Orthostatic Standing] Pulse Oximetry 100 100 Oxygen Delivery Method 07/26/25 15:01 07/26/25 15:30 07/26/25 15:30 Temperature Pulse Rate 55 L Pulse Rate [Orthostatic Lying] Pulse Rate [Orthostatic Sitting] Pulse Rate [Orthostatic Standing] Respiratory Rate Blood Pressure 198/91 H 203/90 H Blood Pressure [Orthostatic Lying] Blood Pressure [Orthostatic Sitting] Blood Pressure [Orthostatic Standing] Pulse Oximetry 100 Oxygen Delivery Method 07/26/25 15:42 07/26/25 15:42 07/26/25 15:56 Temperature Pulse Rate 59 L 60 Pulse Rate [Orthostatic Lying] Pulse Rate [Orthostatic Sitting] Pulse Rate [Orthostatic Standing] Respiratory Rate Blood Pressure 188/88 H Blood Pressure [Orthostatic Lying] Blood Pressure [Orthostatic Sitting] Blood Pressure [Orthostatic Standing] Pulse Oximetry 100 100 Oxygen Delivery Method 07/26/25 15:56 07/26/25 15:58 07/26/25 15:58 Temperature Pulse Rate 63 Pulse Rate [Orthostatic Lying] Pulse Rate [Orthostatic Sitting] Pulse Rate [Orthostatic Standing] Respiratory Rate Blood Pressure 191/87 H 202/82 H Blood Pressure [Orthostatic Lying] Blood Pressure [Orthostatic Sitting] Blood Pressure [Orthostatic Standing] Pulse Oximetry 100 Oxygen Delivery Method 07/26/25 16:00 07/26/25 16:00 07/26/25 16:09 Temperature Pulse Rate 64 Pulse Rate [Orthostatic Lying] 60 Pulse Rate [Orthostatic Sitting] 63 Pulse Rate [Orthostatic Standing] 64 Respiratory Rate Blood Pressure 188/84 H Blood Pressure [Orthostatic Lying] 191/87 H Blood Pressure [Orthostatic Sitting] 202/82 H Blood Pressure [Orthostatic Standing] 188/84 H Pulse Oximetry 100 Oxygen Delivery Method Oxygen Delivery Method Room Air Narrative Exam Narrative: Gen.: Alert mild confusion HEENT: Pupils equal round and reactive Cardio: S1-S2 regular rate and rhythm Respiratory: Normal respiratory effort Abdomen: Soft nontender Extremities: Full range of motion Neurologic: Cognitive decline Objective Labs 07/26/25 10:17 07/26/25 10:17 Labs: Laboratory Results - last 24 hr 07/26/25 07/26/25 07/26/25 10:17 11:03 13:00 WBC 6.1 RBC 4.61 Hgb 13.4 L Hct 38.8 L MCV 84.2 MCH 29.0 MCHC 34.4 RDW 13.9 Plt Count 265 Neut % (Auto) 76.8 H Lymph % (Auto) 13.7 L [place] % (Auto) 7.6 Eos % (Auto) 1.2 L Baso % (Auto) 0.7 Neut # (Auto) 4700 Lymph # (Auto) 800 L [place] # (Auto) 500 Eos # (Auto) 100 Baso # (Auto) 0 PT 11.6 INR 1.0 APTT 31 Sodium 140 Potassium 4.1 Chloride 104 Carbon Dioxide 25 BUN 31 H Creatinine 1.01 Estimated GFR > 60 BUN/Creatinine Ratio 30.7 H Glucose 101 H Calcium 9.6 Total Bilirubin 1.1 AST 33 ALT 17 Alkaline Phosphatase 118 Total Protein 8.1 Albumin 4.7 Globulin 3.4 Albumin/Globulin Ratio 1.4 Urine RBC 10-30/hpf H Urine WBC 10-30/hpf H Ur Squamous Epith Cells 0-1 /hpf Urine Bacteria Few (2-10) H Vol Urine Centrifuged 10ml (spun) Blood Type A Positive Antibody Screen Negative Assessment & Plan Assessment and plan (1) Acute UTI: Status: Acute (2) Major neurocognitive disorder: Status: Chronic Plan Urinary tract infection 85-year-old well with a urinary tract infection. White blood cell count is not elevated lactic acid was not done at admission his urinalysis is consistent with the elevation of white blood cell count and bacteria. Patient was given ceftriaxone in the emergency department this will be continued. Patient also has had previous UTIs with E coli. We will monitor his culture results and continue with IV antibiotics. Acute metabolic encephalopathy on top of moderate cognitive decline. Patient lives at home by himself. He is confused enough that he needs to come into the hospital as it has not safe for him to be discharged home. Hopefully as we get resolution of his urinary tract infection his cognition will become better. He also may need a short stay [facility]. Diarrhea with blood patient concerned about diarrhea. His hemoglobin is mildly low. Rectal exam shows no significant high volume stool output of blood. And this is being monitored. Will continue to monitor this in in the hospital. Will provide proton pump inhibitor which he was on previously. Hypotension. Patient is on fludrocortisone 0.1 mg a day BPH patient on Flomax. Will continue the Flomax during his hospital stay. Disposition and plan admission for urinary tract infection acute and confusion. Time-Based Coding :: [TOTAL MINUTES] spent with patient and on the chart (including review of chart, obtaining history, exam, reviewing outside data, placing orders, documenting exam and treatment plan, and counseling patient) on [DATE]. PROFEE Hvac Installation Technician Document charge(s): Yes Charge Codes Initial inpatient/observation care: [id number]
--- NOTE | 2025-07-26 17:16 | CM.IDA ---
Initial DCP Assessment Patient is 85 y/o male who initially presents to [facility] due to concern for blood in urine and stool, [facility] escorts patient to ED. Patient endorses concern for diarrhea and recent fall a week ago. Patient presented to the ED on 07/06/25 and presented with increased confusion and unsure why he was in the ED, ultimately discharged to home with LTC plan, home health referral, community platinum and palladium kettle tender follow up and APS referral. Patient's PCP is Dr. Fontana, Patient has Medicare and Out of State [employer] insurance. Patient has hx of Major Neurocognative Disorder, Hypotension, Chronic renal failure stage 3, Depression, BPH, lumbar degenerative disc disease and, hx of UTIs and Figueroa's Palsy. OVEN EQUIPMENT REPAIRER reviewed patient's chart and identified patient's hx of two recent [facility] referrals, patient declined [facility] referral on 06/17/25, patient was re-referred in the ED on 07/06/25. It is reported by [facility] that patient has not responded to any of [facility] calls and would require a new referral to home health. OVEN EQUIPMENT REPAIRER calls [facility] and leaves . Since it is the weekend, OVEN EQUIPMENT REPAIRER is unable to receive any updates regarding APS investigation. OVEN EQUIPMENT REPAIRER enters room to meet with patient, patient presents as A/Ox4 upon assessment. Patient resides alone in [place], he states he visits his spouse at [facility] daily. Patient denies concern for ADLs at home, he states he ambulates with a cane and patient drove himself to the [facility] today. It is reported that patient misplaced his cane, it is not found in [facility] or ED. It is reported that PCP has recommended that patient stop driving but patient continues to drive self. Patient's son Julien is DPOA and resides in [place], patient's daughter Dilma is secondary DPOA and resides in [place]. OVEN EQUIPMENT REPAIRER asks about [facility] and [facility] Brayan Robert and patient denies interest or need for these in supports and services. Patient states that his family is working on finding a memory care facility in the [place] area for him and his spouse. Patient gives consent for OVEN EQUIPMENT REPAIRER to speak with patient's daughter Dilma, ED OVEN EQUIPMENT REPAIRER and ED provider had conversation with this daughter on patient's last ED presentation on 07/06/25. Dilma endorses that patient has hx of reoccurring diarrhea for a couple months. Dilma reports that patient has a hx of Dementia and she and her brother and determining if patient and spouse will move to a Memory care facility in [facility]. Dilma reports that patient is on board with this plan and they are hopeful to move patient within weeks. There is concern for patient's sound decision making, ability to manage ADLs independently, difficulty managing medication at home. There is a hx of a few APS referrals in the last month regarding patient. As a mandated deposition reporter per [facility] [phone] this OVEN EQUIPMENT REPAIRER has given confidential information about the patient to Adult Protective Services intake team. OVEN EQUIPMENT REPAIRER submits APS referral for further investigation: Online Report Confirmation Number: [id number]. There is concern that patient can safely ambulate and drive himself home this even. ED provider reviews patient with Dr. Gonzalez and it is identified that patient is admitted as OBS due to concern for Acute UTI, failure to thrive and diarrhea. Patient's daughter is notified of patient's admission. Plan: Patient to be admitted for further treatment and evaluation, patient would benefit from PT and OT for SLUMs evaluation, DCP to f/u with family regarding POC and LTC disposition. NNEKA Wyatt Discharge Planning/Care Management CM Discharge Assessment Start: 07/26/25 16:24 Freq: Status: Active Protocol: Document 07/26/25 17:09 LN (Rec: 07/26/25 17:14 LN [id number]) Discharge Planning Assessment Assigned Discharge NNEKA Baig Machine Pie Maker Provider Dr. Yaniv Fontana Insurance [facility],Medicare DPOA/Assigned Julien [place]/Son Designee Name Contact Information [phone] Advance Directives? Yes: DPOA For Health Care; Health Care Directive Advance Directives Yes on File History Provided By Patient,Family Member,Medical Record Has Patient been No admitted in last 30 days? Prior Living House Arrangements Comment Patient's spouse resides at [facility] facility and patient visits her daily. Type of Drives own vehicle transporation used prior to admit Independent with ADL Yes 's Is patient alert and Yes oriented? Comment [facility] has been referred to patient twice to [facility] in the last several weeks but patient has denied service then has not returned calls. Patient has current referral with [facility] Robert but Brayan has been unable to make contact with patient. DME Already Rented / Cane Owned Patient/Family LTAC Preference Comment Patient and family are working on moving patient and spouse to new memory care facility in [facility]. Additional Comment caregivers and Home health in the interim?
[2025-07-26] MEDS: SODIUM CHLORIDE 0.45% 1,000 ML 100 ML IV (17:31)
--- NOTE | 2025-07-26 17:42 | PC.NURSE ---
Patient states that that he had a walking stick with him prior to arrival when he went to the walk in clinic. Patient arrived here without a walking stick. This RN called the walk in clinic several times without being able to get a hold of anyone. This RN informed JAY JAY Avila of this issue when I gave verbal report on this patient.
[2025-07-27] MEDS: SODIUM CHLORIDE 0.45% 1,000 ML 100 ML IV ×3 (02:58→21:01)
[2025-07-27 05:21] LABS: Add Manual Diff / Slide Review NO; Hematocrit 35.6 % (41-53); Hemoglobin 12.4 g/dL (13.5-17.5); Lymphocytes Absolute Auto 1000 /uL (1100-4500); Mean Corpuscular HGB Conc 34.8 % (30-36); Mean Corpuscular Hemoglobin 29.1 PG (26-34); Mean Corpuscular Volume 83.5 fL (80-100); Platelet Count 230 X10^3/uL (150-400)
[2025-07-27 05:37] LABS: Alanine Aminotransferase 14 IU/L (<50); Albumin 3.9 g/dL (3.5-5.0); Albumin Globulin Ratio 1.3 (1.0-2.8); Alkaline Phosphatase 101 U/L (38-126); Blood Urea Nitrogen 23 mg/dL (9-20); Calcium 9.4 mg/dL (8.4-10.2); Carbon Dioxide 24 mmol/L (22-32); Chloride 104 mmol/L (98-107); Estimated Glomerular Filt Rate > 60 mL/min (>60); Globulin 3.0 g/dL (1.7-4.1); Glucose 91 mg/dL (70-99); HEMOLYSIS 16 (0-50); Potassium 3.7 mmol/L (3.4-5.1); Sodium 138 mmol/L (137-145); Total Protein 6.9 g/dL (6.3-8.2)
--- NOTE | 2025-07-27 07:35 | P.PN_ITS ---
Subjective Subjective Date Patient Seen: 07/27/25 Time Patient Seen: 07:36 Interval history: Patient well known to me. Admitted via the emergency department with complaints of bloody diarrhea. He first presented to the walk-in clinic and also is describing some dizziness and pretty classic explosive diarrhea with bright red blood although describes brown stool. He was transferred to the emergency department. He Denied any other symptoms and actually after a dose of Imodium had no further diarrhea. Workup in the ED was unremarkable. Hemoglobin hematocrit stable and at baseline, CT angiography did not demonstrate any acute active extravasation of contrast into the intestinal tract, no findings on colonic wall to suggest colitis. Patient Hemoccult negative with normal appearance of stool in ED. Overnight hemoglobin hematocrit have remained stable. As his ER evaluation went on it became clear patient was really quite confused and was not felt to be safe to be discharged home. Urinalysis suggestive of possible UTI, so patient placed on parental antibiotics and admitted Patient has been struggling mightily at home living independently because of cognitive decline for the last several months. Does not have local family has children in the [place] area who are aware of his status. 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 However ER and walk- in clinic notes are pretty clear about his discussion regarding the explosive diarrhea which this morning he can not really tell me why there is this discrepancy In addition this morning he is talking about numbness on the left side of his face and numbness of his tongue making it hard for him to speak. However his voice is essentially the same as it has been and the distribution of symptoms matches his previous Figueroa's palsy which he does not seem to readily remember until he is reminded and then he basically says ?0h yeah, that is right? Exam Vital Signs (past 8 hours): Oxygen Delivery Method Room Air Oxygen Flow Rate 0 Objective Labs 07/27/25 04:55 07/27/25 04:55 Labs: Laboratory Results - last 24 hr 07/26/25 07/26/25 07/26/25 10:17 11:03 13:00 WBC 6.1 RBC 4.61 Hgb 13.4 L Hct 38.8 L MCV 84.2 MCH 29.0 MCHC 34.4 RDW 13.9 Plt Count 265 Neut % (Auto) 76.8 H Lymph % (Auto) 13.7 L Eagle % (Auto) 7.6 Eos % (Auto) 1.2 L Baso % (Auto) 0.7 Neut # (Auto) 4700 Lymph # (Auto) 800 L Eagle # (Auto) 500 Eos # (Auto) 100 Baso # (Auto) 0 PT 11.6 INR 1.0 APTT 31 Sodium 140 Potassium 4.1 Chloride 104 Carbon Dioxide 25 BUN 31 H Creatinine 1.01 Estimated GFR > 60 BUN/Creatinine Ratio 30.7 H Glucose 101 H Calcium 9.6 Total Bilirubin 1.1 AST 33 ALT 17 Alkaline Phosphatase 118 Total Protein 8.1 Albumin 4.7 Globulin 3.4 Albumin/Globulin Ratio 1.4 Urine RBC 10-30/hpf H Urine WBC 10-30/hpf H Ur Squamous Epith Cells 0-1 /hpf Urine Bacteria Few (2-10) H Vol Urine Centrifuged 10ml (spun) Blood Type A Positive Antibody Screen Negative 07/27/25 04:55 WBC 6.2 RBC 4.26 L Hgb 12.4 L Hct 35.6 L MCV 83.5 MCH 29.1 MCHC 34.8 RDW 14.3 Plt Count 230 Neut % (Auto) 71.7 Lymph % (Auto) 16.4 L Eagle % (Auto) 8.8 Eos % (Auto) 2.5 Baso % (Auto) 0.6 Neut # (Auto) 4400 Lymph # (Auto) 1000 L Eagle # (Auto) 500 Eos # (Auto) 200 Baso # (Auto) 0 PT INR APTT Sodium 138 Potassium 3.7 Chloride 104 Carbon Dioxide 24 BUN 23 H Creatinine 0.77 Estimated GFR > 60 BUN/Creatinine Ratio 29.9 H Glucose 91 Calcium 9.4 Total Bilirubin 0.9 AST 23 ALT 14 Alkaline Phosphatase 101 Total Protein 6.9 Albumin 3.9 Globulin 3.0 Albumin/Globulin Ratio 1.3 Urine RBC Urine WBC Ur Squamous Epith Cells Urine Bacteria Vol Urine Centrifuged Blood Type Antibody Screen [facility] Medical History (Updated 07/27/25 @ 07:41 by Yaniv Fontana MD) Major neurocognitive disorder Hypotension Fracture of ulnar styloid Depression Stool incontinence BPH w urinary obs/LUTS Iron deficiency anemia Esophagitis Elevated PSA Chronic renal failure, stage 3 (moderate) History of adenomatous polyp of colon Hypertension (04/13/11) History of flexible sigmoidoscopy (06/18/14) 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) SCCA (squamous cell carcinoma) of skin (07/21/09) BCC (basal cell carcinoma of skin) (07/16/12) Scoliosis of lumbosacral spine Spinal stenosis, 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 GERD (gastroesophageal reflux disease) 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 Patient reported diarrhea with blood-no evidence of same during this hospitalization so far. Blood counts have been stable. Continue to monitor for evidence of active bleeding but thus far does not appear to have an active GI bleed 2. UTI-continue with empiric parental antibiotics until urine cultures available to help guide therapy 3. Hypotension-patient presented with significant hypotension earlier in the summer, with systolic blood pressure in the 90s on 2 separate occasions and some minor symptoms. He was started on fludrocortisone and blood pressure improved with that. Currently he is hypertensive and I am going to discontinue the fludrocortisone and monitor him here in the hospital. As noted around his cognitive dysfunction I wonder about his home medication use, possible he has inappropriately take an excessive medication (he was previously on amlodipine for hypertension) etcetera. 3. Major cognitive disorder/dementia-patient was tried on a course of citalopram over 2+ months that did not make things better than the fact patient thought it made his confusion worse. Certainly there is an element of depression related to his spouse's condition and his ongoing decline but that did not make any difference, so there is more than depression related cognitive change here. He has struggled to keep track of his medications and I wonder about his hypotension previously, as well as his hypertension currently, specifically wonder about medication mismanagement at home due to his cognitive dysfunction We have previously treated UTI without real benefit in his cognitive function although there may be an element of a metabolic encephalopathy present at the current time and will continue treating his UTI but my clinical suspicion is that he will not greatly improved even with treatment of his UTI Therefore plans need to be made for placement in an alternate living facility, in my opinion. I will have him seen by skilled therapies including OT and speech therapy given his cognitive dysfunction for evaluation I have consulted discharge planning as we will need assistance in finding an appropriate and safe discharge plan for this patient. Apparently he and his children have been looking at alternatives and he does seem to understand that it will require a spend down so that he can transfer from Medicare to Medicaid as finances are a big issue Time-Based Coding :: [TOTAL MINUTES] spent with patient and on the chart (including review of chart, obtaining history, exam, reviewing outside data, placing orders, documenting exam and treatment plan, and counseling patient) on [DATE]. PROFEE Cut Tobacco Bulker Document charge(s): Yes Charge Codes Subsequent inpatient/observation care: 84334
[2025-07-27 08:00] VITALS: BP 161/83; PULSE 59; RESP 16; O2SAT 100
[2025-07-27] MEDS: TAMSULOSIN 0.4 MG CAPSULE PO (08:41)
[2025-07-27] MEDS: ENOXAPARIN 40 MG/0.4 ML SYRINGE SUBCUT (08:41)
--- NOTE | 2025-07-27 11:03 | OT.IP.EVAL ---
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) History of flexible sigmoidoscopy (06/18/14) Hypertension (04/13/11) Hypotension Iron deficiency anemia 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 Major neurocognitive disorder SCCA (squamous cell carcinoma) of skin (07/21/09) Scoliosis of lumbosacral spine Spinal stenosis, lumbar region with neurogenic claudication Stool incontinence Surgical History (Last Reviewed 07/06/25 @ 16:20 by Elizabeth Pierre MD) History of basal cell carcinoma (BCC) excision (07/21/09) History of colon surgery History of colonoscopy with polypectomy (12/04/13) History of colonoscopy with polypectomy (07/20/17) History of lumbar fusion (06/07/15) History of squamous cell carcinoma excision (07/16/12) Status post epidural steroid injection (01/13/15) Status post Mohs surgery (04/27/17) Occupational Therapy Inpatient Evaluation/Re-Eval M1 OT IP Prior Functional Status Start: 07/27/25 10:36 Freq: Status: Active Protocol: Document 07/27/25 10:36 ASHLEY (Rec: 07/27/25 11:03 CHIPIALISY Desktop) Medical Review Prior Functional Status Medical History Yes Reviewed Communication Pt is able to make needs known. Pt needs questions repeated, gets distracted when answering, and will begin to answer previous questions again forgetting that he has already answered. 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 Pt reports that his children, who live out of town, visit weekly and assist with housework. Social History Household Members none Living Arrangements House Number of Floors ( Two Floors Floors) Number of Stairs To Pt reports 12 steps to second floor with railing on R. Enter/Railing? Pt has 3 steps to enter house with no rails. Pt reports that he has to use both floors of his house. Home Environment Standard Height Toilet,Walk in Shower,Tub/Shower Doors Home Equipment Straight Cane,Hand Held Shower,Grab Bars In Shower Employment Status Retired M2 OT-IP Current Condition Start: 07/27/25 10:36 Freq: Status: Active Protocol: Document 07/27/25 10:36 ASHLEY (Rec: 07/27/25 11:03 CHIPIALISY Desktop) Occupational Therapy Current Condition Current Condition Evaluation Date 07/27/25 Treatment Diagnosis UTI, acute metabolic encephalopathy, decreased self care Diagnosis Onset Date 07/26/25 M3 OT- IP Subjective and Pain Start: 07/27/25 10:36 Freq: Status: Active Protocol: Document 07/27/25 10:36 ASHLEY (Rec: 07/27/25 11:03 CHIPIALISY Desktop) OT- Subjective Occupational Therapy Visit Type Type Initial Evaluation Visit Start Time 09:08 Visit Stop Time 09:43 Occupational Therapy Visit Comments Patient Comments Pt reclined in bed on entrance of OT. Pt agreed to participate in eval and to get up to chair. Patient/Caregiver Pt states that he doesn't know. Goals OT Pain Assessment Pain When Pain Assessed After Treatment Pain Present Pain Present Denied Pain M4 OT- IP ADL's Start: 07/27/25 10:36 Freq: Status: Active Protocol: Document 07/27/25 10:36 ASHLEY (Rec: 07/27/25 11:03 CHIPIALISY Desktop) OT [id number] Comments OT Self-Feeding not observed Comments OT ADL-Grooming General Evaluation Areas Needing Retrieving/Set-up of Grooming Items Assistance Comments OT Grooming Comments Pt horowitz his hair while seated on setup. OT ADL-Oral Care Comments Oral Care Comments Pt declines at time of eval. OT ADL-Dressing General Eval Lower Body Dressing Total Assistance Ability Comments OT Dressing Comments Pt attempts to don socks while EOB. Pt initiates by performing figure 4 position but has significant posterior lean and cannot maintain balance and complete task. Pt reports that this is difficult for him at home as well. OT ADL-Toileting General Evaluation Toileting Ability Total Assistance Comments OT Toileting Pt currently dependent on catheter. Comments OT ADL-Bathing Comments OT Bathing Comments not observed M5 OT- IP IADL's Start: 07/27/25 10:36 Freq: Status: Active Protocol: Document 07/27/25 10:36 CHIPDERRELLLUCÍAMILLIE (Rec: 07/27/25 11:03 [facility]) OT-Instrumental Activities of Daily Living Deficits IADL Deficits Deficits Identified Home Safety Awareness Awareness of Need Decreased Awareness for Assistance at Home Ability to Problem Unable to Problem Solve Solve Emergency Situations Medication Management Medication Pt would benefit from supervision for safety. Management Comments Money Management Money Management Pt would benefit from supervision. Comments Meal Preparation Meal Preparation Pt reports he performs, needs assistance currently for Comments safety Gyroscope Technician Gyroscope Technician Caregiver Provides Assist Driving Driving Comments Pt reports he performs, needs assistance currently for safety M6 OT- IP Functional Cognition Start: 07/27/25 10:36 Freq: Status: Active Protocol: Document 07/27/25 10:36 ASHLEY (Rec: 07/27/25 11:03 [facility]) Cognitive Factors Limiting Selfcare Function Cognitive Ability Level of Alertness Alert Patient Orientation Name,Age,Birthday,Year,Place,Situation Attention Span Capable of Focused Attention,Capable of Sustained Ability Attention Ability to Follow Able to Follow One Step Commands with Increased Time, Commands Able to Follow One Step Commands with Repetition Memory Description Short Term Impaired,Working Impaired Safety Awareness Underestimates Need for Assistance Problem Solving Unable to Identify Errors,Needs Assist to Identify Ability Solutions Executive Function Unable to Hold Focus,Unable to Switch Focus,Unable to Ability Filter Distractions,Unable to Remember Details Cognitive Tests SLUMS Pt scored 12/30 on SLUMs which is indicative of dementia. Pt was unaware of the day of the week, unable to subtract 100-23, was able to recall 12 animals in 60 seconds, recalled 0/5 items after a short time, unable to correctly place numbers on the clock, unable to follow directions for placing an x in the triangle (instead placed an x in both square and triangle), and was able to answer 2/4 questions from short story. Cognitive Comments Cognitive Assessment Pt had a difficult time filtering distractions during Comments evaluation, needed questions and steps to be broken down into smaller components and repeated to him frequently, has difficulty noticing problems and is unable to solve them. Pt became fixated on his IV and catheter tubing and needed redirection. Pts current cognitive abilities presents serious concerns for independent living. OT- Vision and Hearing OT- Hearing Assessment OT- Hearing WFL Assessment OT- Vision Assessment Visual Acuity WFL,Glasses All The Time M7 OT- IP Mobility and Balance Start: 07/27/25 10:36 Freq: Status: Active Protocol: Document 07/27/25 10:36 ASHLEY (Rec: 07/27/25 11:03 CHIPIALISY Desktop) OT- Bed Mobility Assessment Supine to Sit Supine to Sit Assist Contact Guard Assistance,Head of Bed Elevated,Bedrails Scooting Scooting to Edge of Contact Guard Assistance,Bedrails Bed OT-Transfer Assessment Sit to and From Stand Sit to and from Moderate Assistance,1 Person Assistance,Use of Upper Stand Extremities Transfers Transfer Ability Moderate Assistance,1 Person Assistance,Use of Upper Extremities Technique Transfer Destination Chair Transfer Technique Stand Step Pivot Devices Transfer Assistive Gait Belt,Front Wheeled Walker Devices Comments Mobility Comments Pt needs frequent vcs to break down the task into smaller steps. Pt requires hand over hand assist to place hands in correct place to safely push up or reach back. Pt is unaware of significant posterior lean while EOB and is unable to self correct without tc and vcs. OT- Balance Assessment Sitting Balance and Reactions Static Sitting Poor Balance Ability Dynamic Sitting Poor Balance Ability Standing Balance and Reactions Static Standing Poor Balance Ability Dynamic Standing Poor Balance Ability M8 OT- IP Objective Assessments Start: 07/27/25 10:36 Freq: Status: Active Protocol: Document 07/27/25 10:36 ASHLEY (Rec: 07/27/25 11:03 CHIPIALISY Desktop) OT Gross Range of Motion Upper Extremity Range of Motion Assessment Within Functional Limits OT Strength Upper Extremity Strength Assessment Within Functional Limits Hand General Utility Maintenance Repairer Strength Hand Dominance Right Comments Strength Comments Grossly pt's UE strength is 4/5 OT-Muscle Tone Assessment Muscle Tone WNL No OT Sensation Assessment Comments Summary Comments Pt has no sensory deficit complaints Edema Edema Absent M9 OT- IP Assessment and Plan Start: 07/27/25 10:36 Freq: Status: Active Protocol: Document 07/27/25 10:36 ASHLEY (Rec: 07/27/25 11:03 ASHLEY ArreolaAlfonso OT Summary Assessment and Plan Potential Rehabilitation Good Potential Analytic Complexity Moderate at Evaluation Summary OT Impairments Balance,Functional Cognition,Functional Mobility, Grooming,Dressing,Toileting,Bathing,Toilet Transfers, Shower Transfers,Activity Tolerance Progress Towards Slow Progress due to Cognition Goals Assessment Summary Pt is an 85 yo M who was admitted due to UTI, GI bleed, failure to thrive, and acute metabolic encephalopathy. Pt scored a 12/30 on SLUMs indicating dementia. Pt has a difficult time filtering distractions during evaluation, needed questions and steps to be broken down into smaller components and repeated to him frequently, has difficulty noticing problems and is unable to solve them. Pt became fixated on his IV and catheter tubing and needed redirection. Pts current cognitive abilities presents serious concerns for independent living. Pt requires hand over hand assist to place hands in correct place to safely push up or reach back during functional mobility. Pt is unaware of significant posterior lean while EOB and is unable to self correct without tc and vcs. Pt required TOTAL A for LB dressing and toileting and performed grooming on Setup while seated. Pt presents with decreased activity tolerance, decreased safety awareness, decreased BADLs, and decreased functional mobility. Skilled OT services are appropriate to address these deficits. Pt would benefit from SNF to further progress in these areas promoting return towards PLOF. Due to pts cognitive changes, pt will most likely need 24/7 assist upon final discharge from all therapies. Goals Grooming Goal Standby Assistance Dressing Goal Standby Assistance Toileting Goal Standby Assistance Bathing Goal Standby Assistance,Grab Bars,Hand Held Shower Sprayer Toilet Transfer Goal Standby Assistance,Grab Bars Shower Transfer Goal Standby Assistance Days to Meet Goals 10 Frequency of Treatment Other frequency 5x/wk Treatment Plan OT Treatment Plan ADL Training,Functional Cognition Training,Functional Mobility,Therapeutic Exercises,Patient/Family Education ,Discharge Planning Discharge Recommendations OT Discharge SNF Rehab Recommendations Transportation Needs Private Vehicle,Wheelchair/Cabulance at Discharge
--- NOTE | 2025-07-27 15:36 | INF.NOTE ---
Day shift: Pt A&O to self, situation, and year. Pt declining to reposition, repeatedly talks over staff when presenting pt education. Worked with OT, up to chair for ten minutes. Pt assisted back to bed. Rested in bed. Pt states he is worried about car. Pt offered options to check on vehicle. Pt exhibited argumentative language. Pt agreeable to allowing security chief museum check on his vehicle. Pt satisifed with outcome. Pt up in room, ambulating with 1PA gait belt FWW. Declining to sit down. Left-leaning gait, resistive to sitting down, states, I want to do this for an hour. Pt educated on fall safety. Pt agreeable to working with speech therapy. In chair with chair alarm active, call light within reach. Care ongoing.
--- NOTE | 2025-07-27 16:00 | CM.DPC ---
DCP Cont: Per MD, pt with UTI and weakness and to work with PT/OT/ST today to determine discharge needs. Per OT, pt's SLUM 09/15 and feel pt could benefit from SNF vs 09/04 care. PT/ST pending. SW met bedside with pt and he was fixated on making sure his car was still in the parking lot and locked and having difficulty following linear thought process which caused him some frustration. SW called Security who met bedside with pt to get discription of the vehicle and pt adamant that Security take his car keys to lock his car and REGISTER CLERK kindly went with Security to confirm and then return car keys to pt's bedside bag. Pt not able to have discussion regarding discharge planning at this time. SW attempted to call POA yoana Victoria but wrong number in chart, confirmed correct cell phone [phone]. Then called GREG Perera [phone] and she confirms that [facility] refused to consider pt moving in where his currently resides at [facility]. Discussed potential option of SNF at d/ but barriers are pt's confusion/dementia and another new environment and Dilma states she does not think pt will be agreeable to SNF and pt's goal is to be near his of 67 years. Cindi and son touring Memory Care facilty in [place] and in [facility] to work on plan of moving pt and spouse together at d/c from the hospital. Cindi Perera is an RN and has good understanding of dementia and medical care and needs. Plan: SW to follow closely for pt's progress and with family working on Memory Care placement at d/c near them in [facility]. GAB Rubio
--- NOTE | 2025-07-27 16:58 | ST.IPSLE ---
Visit Care Team Role Provider Type Randi Stevenson MD Emergency Provider Physician Referring Provider Specialty: Emergency Medicine Address: [address] [place] [address], [id number] Fax: Email: [email or web address] Yaniv Fontana MD Attending Provider Physician Family Provider Primary Care Provider Specialty: Internal Medicine Address: [address] [place] [address], [address], [address] Email: [email or web address] Kavon Gonzalez MD Admit Provider Physician Other Providers Specialty: Family Practice Address: [address] [place] [address], [address], [place], [address] Email: [email or web address] Current Diagnoses Unspecified dementia, unspecified severity, without behavioral disturbance, psychotic disturbance, mood disturbance, and anxiety (07/27/25) Urinary tract infection, site not specified (07/27/25) Past Medical History (Last Updated 07/27/25 @ 07:41 by Yaniv Fontana MD) BCC (basal cell carcinoma of skin) (Medical 07/16/12) BPH w urinary obs/LUTS (Medical) Chronic renal failure, stage 3 (moderate) (Medical) Depression (Medical) Elevated PSA (Medical) Esophagitis (Medical) EGD February 2020, eosinophils Fracture of ulnar styloid (Medical) GERD (gastroesophageal reflux disease) (Medical) History of adenomatous polyp of colon (Medical) 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) History of flexible sigmoidoscopy (Medical 06/18/14) Hypertension (Medical 04/13/11) Hypotension (Medical) Iron deficiency anemia (Medical) 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) Right lateral forehead Left-sided Figueroa's palsy (Medical) Major neurocognitive disorder (Medical) SCCA (squamous cell carcinoma) of skin (Medical 07/21/09) Scoliosis of lumbosacral spine (Medical) Spinal stenosis, lumbar region with neurogenic claudication (Medical) Stool incontinence (Medical) Speech-Language Pathology Speech/Language Eval BALLOON SANDER Adult Cognitive Linguistic Eval Start: 07/27/25 16:28 Freq: Status: Active Protocol: Document 07/27/25 16:28 SS (Rec: 07/27/25 16:57 SS [email or web address]) Adult Cognitive Linguistic Evaluation Session Time Visit Start Time 15:40 Visit Stop Time 16:15 Total Visit Minutes 35 Visit Information Visit Number [address] Yaniv Fontana MD Reason for Referral Cognitive concerns Setting Assessment Location Acute Care Visit Type Note Type Initial evaluation Next Note Type Next Note Type Treatment Note Patient Information Identification Type Name Patient History per H&P: 85-year-old male with a past medical history of neurocognitive changes hypotension depression BPH chronic renal failure lumbar degenerative disc disease and Figueroa's palsy. Presented to the emergency department with concerns about blood in his stool and diarrhea. Patient had laboratory testing done CT imaging and urinalysis. During his hospital stay it was noted that he had increasing neurocognitive changes with confusion. Patient apparently lives at home by himself. The social worker school got involved. They were concerned about patient going home with his level of confusion and unsafe discharge. His laboratory testing revealed a hemoglobin of 13.4 BUN creatinine is stable with a creatinine of 1.1 in his EGFR is 60. His urinalysis shows an elevated white blood cell count of 10 to 30 with urine bacteria. Previous urine cultures show E coli. During the emergency room workup and evaluation he had a CT scan of his abdomen and pelvis which was unchanged and neuroimaging which also was unchanged. At they were going to discharge him patient began continued to have more and more confusion and they were concerned about a safe discharge plan and elected to admit to the hospital because of his mental status changes and his urinary tract infection. BALLOON SANDER completed cognitive-communication assessment to assess current function and inform POC. Hearing Hearing Level Normal Vision Vision Status Impaired Comments Wears reading glasses Subjective Patient Report Chart reviewed and RN consulted. Per chart notes, pt presenting with neurocognitive changes with confusion. It appears he has been having more difficulty living independently. BALLOON SANDER discussed baseline function with pt. 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 Pt stated his children visit him about once a week and help with household tasks. Mental Status Cooperative,Confused Informal Assessment Receptive Language No Normal Receptive Language Comprehension of complex yes/no questions,Following 2- Impairment(s) step commands,Following 3-step commands,Comprehension of conversation Expressive Language Yes Normal Pragmatic Language Yes Normal Speech Normal No: [place] palsy at baseline (no change) Cognition Normal No Cognitive Impairment Orientation,Attention,Short-term memory,Executive (s) functioning,Problem solving,Reasoning,Safety awareness, Impulsivity Formal Assessment Results Per OT report, ?pt scored 12/30 on SLUMs which is indicative of dementia. Pt was unaware of the day of the week, unable to subtract 100-23, was able to recall 12 animals in 60 seconds, recalled 0/5 items after a short time, unable to correctly place numbers on the clock, unable to follow directions for placing an x in the triangle (instead placed an x in both square and triangle), and was able to answer 2/4 questions from short story. BALLOON SANDER administered the Mini-Mental State Examination ( MMSE). The pt scored 17/30, which is indicative of severe cognitive impairment. Pt was not oriented to date of day of the week, was unable ot recall three objects after a short period of time, could not backwards from 100 by 7?s beyond 93, and was unable to follow multi-step directions without additional visual cues. BALLOON SANDER also administered the medbox assessment to evaluate the pt?s ability to independently and accurately manage his medications. During the assessment, the pt was given sample medication bottles and pillboxes and was asked to follow the instructions on the labels to set up a week's worth of medication. Pt initially held the pillbox upside down and stated he could not read the words. When BALLOON SANDER asked him to turn it the right side up, he was resistant. He was able to read the label on the first pill bottle, but did not attempt to open it or fill the pillbox despite encouragement and BALLOON SANDER modeling of first few pills. Throughout the assessment, pt was highly distracted and perseverated on talking about his spouse and wanting to return home. He had difficulty comprehending complex /longer questions and directions and benefited from frequent repetition. He demonstrated minimal awareness and poor insight to deficits throughout the assessment with minimal ability to self-correct errors. However, at the end of the assessment, he did note ?I don?t think I did that well.? Findings/Results Language Function Mildly impaired Cognitive Function Moderately-severely impaired Findings Given informal assessment and results from the MMSE and Medbox assessment, the pt presents with severe cognitive-communication impairment (R41.841). Pt is at a high risk of making critical errors with tasks such as medication management, financial service representative, and completion of ballpoint pens assembler, as well as everyday tasks that require adequate skills in the areas of attention, immediate and delayed memory, and executive functioning. Recommend 1:[address] with the goal of providing therapeutic education and training in use of cognitive-communication compensatory strategies, specifically targeting attention and immediate and delayed memory for improved safety and independence. Pt also presents with decreased safety awareness and insight to current function. Pt will likely need 24/7 assist following discharge from current level of care given significant cognitive- communication impairment. Prognosis Prognosis Fair Plan of Care Speech-Language Yes Treatment Frequency 5x/week Duration Current hospital admission Patient/Caregiver Described results of evaluation,Patient expressed Education understanding of evaluation,Patient expressed agreement with goals and treatment plans Short Term Goals 1. Patient will utilize compensatory memory aids with 90% accuracy given max verbal and visual cues to increase orientation and functional recall/ participation within current setting. 2. Patient will complete 2-step commands with 90% accuracy given min verbal and visual cues to increase participation within current setting. 3. Patient will utilize memory book with 80% accuracy given max verbal and visual cues to increase orientation to current setting and improve short-term recall. Chicken Tender Goals Patient will exhibit adequate cognitive-communication skills for discharge to next level of care with standby supervision using compensatory strategies as trained to facilitate safety and independence. Discharge detention facility Recommendations
[2025-07-27 20:15] VITALS: BP 162/81; PULSE 64; RESP 18; TEMP 36.3; O2SAT 95
--- NOTE | 2025-07-28 07:48 | PM.PN.IH.1 ---
Subjective Subjective Date Patient Seen: 07/28/25 Time Patient Seen: 07:49 Interval history: Patient with uneventful day and evening. Still a bit borderline hypertensive, no hypotension at all Afebrile Urine culture negative No stool output to suggest an issue with chronic diarrhea or GI bleeding. Patient does not even appear to be aware he has got a White catheter in place as he surprised he has not been up to the bathroom at all including not filling at bedside urinal. Seen by Occupational therapy yesterday. Scored 09/15 on a SLUMS exam, pretty much as expected. Very little insight into his deficits, in my opinion Speech therapy worked with him on medication management and he did very poorly, again as expected and probably explaining some of his hypotension/hypertension issues over the last several months, again in my opinion Exam Vital Signs (past 8 hours): Oxygen Delivery Method Room Air Oxygen Flow Rate 0 Objective Labs 07/27/25 04:55 07/27/25 04:55 [facility] Medical History (Updated 07/27/25 @ 07:41 by Yaniv Fontana MD) Major neurocognitive disorder Hypotension Fracture of ulnar styloid Depression Stool incontinence BPH w urinary obs/LUTS Iron deficiency anemia Esophagitis Elevated PSA Chronic renal failure, stage 3 (moderate) History of adenomatous polyp of colon Hypertension (04/13/11) History of flexible sigmoidoscopy (06/18/14) 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) SCCA (squamous cell carcinoma) of skin (07/21/09) BCC (basal cell carcinoma of skin) (07/16/12) Scoliosis of lumbosacral spine Spinal stenosis, 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 GERD (gastroesophageal reflux disease) 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 GI-patient with reported diarrhea intermittently and perhaps even blood in the toilet at times. No evidence of that during this hospitalization. I strongly suspect any diarrhea he may be experiencing is related to things he is ingesting at home the probably should not be ingested such as food products etcetera. No evidence of active colitis on CT imaging and no stool output since admission. I am not concerned about GI bleeding or about some source of chronic diarrhea beyond the above 2. UTI-urine cultures negative. Will switch to an empiric oral antibiotic based on most recent positive culture which was E coli that was pansensitive from March. He should complete a 7 day course. I am mostly treating in case there is some level of metabolic encephalopathy contributing to his cognitive impairment that we might be able to reverse and that for some reason we just did not pick it up with the urine culture. I am going to discontinue his White catheter. Continue with the tamsulosin at a b.i.d. dosing, especially since blood pressure does not seem to be an issue on the low side 3. Hypertension/hypotension-I now believe patient's hypotension earlier in the summer was related to medication mismanagement with the amlodipine etcetera. At this point he is back to his usual baseline hypertension. I am going to restart amlodipine at low-dose. I did discontinue the fludrocortisone yesterday which is not appearing to be at all necessary. 3. Major cognitive disorder/dementia-patient continues to demonstrate significant deficits and inability to function any sort of complex situation. He would not be safe to return home to an independent living situation without 24/7 monitoring. He is unsafe to drive, and I will report this to the [facility] Department of licensing. Continue to work with skilled therapies here as noted in their various notes. I have reviewed the care management notes which discuss plans from patient's family to hopefully move him and his spouse who is currently at [facility] here [facility] to the same facility closer to family in [facility]. I think that is an appropriate discharge plan. Discharge home to independent living is not appropriate at this time. Discharge home with 24/7 monitoring from family would be an acceptable although less preferred alternative. One last note, Dr. Gonzalez has graciously agreed to see this patient tomorrow for me in my absence, as I will be out of hospital/clinic on Sunday Time-Based Coding :: [TOTAL MINUTES] spent with patient and on the chart (including review of chart, obtaining history, exam, reviewing outside data, placing orders, documenting exam and treatment plan, and counseling patient) on [DATE]. PROFEE Appeals Officer Document charge(s): Yes Charge Codes Subsequent inpatient/observation care: [id number]
[2025-07-28] MEDS: ENOXAPARIN 40 MG/0.4 ML SYRINGE SUBCUT (09:17)
[2025-07-28] MEDS: TAMSULOSIN 0.4 MG CAPSULE PO ×2 (09:17→21:20)
[2025-07-28] MEDS: TRIMETH/SULFA 160/800 (DS) TABLET 1 TAB PO ×2 (09:17→21:20)
[2025-07-28 11:08] VITALS: BP 113/58; PULSE 68; RESP 18; O2SAT 97
--- NOTE | 2025-07-28 12:15 | ST.IPTN ---
Visit Care Team Role Provider Type Randi Stevenson MD Emergency Provider Physician Referring Provider Address: [address] [place] [address], [id number] Fax: Yaniv Fontana MD Attending Provider Physician Family Provider Primary Care Provider Address: [address] [place] [address], [address], [address] Kavon Gonzalez MD Admit Provider Physician Other Providers Address: [address] [place] [address], [address] [place] [address], [id number] FIELD CONTACT PERSON Treatment Note FIELD CONTACT PERSON Treatment Note Start: 07/27/25 16:28 Freq: Status: Active Protocol: Document 07/28/25 12:08 MA (Rec: 07/28/25 12:15 MA Desktop) Speech Pathology Treatment Note Session Time Visit Start Time 11:30 Visit Stop Time 11:50 Total Visit Minutes 20 Visit Information Visit Number 2 Setting Treatment Setting Acute Care Next Note Type Next Note Type Treatment Note General Information Patient History per H&P: 85-year-old male with a past medical history of neurocognitive changes hypotension depression BPH chronic renal failure lumbar degenerative disc disease and Figueroa's palsy. Presented to the emergency department with concerns about blood in his stool and diarrhea. Patient had laboratory testing done CT imaging and urinalysis. During his hospital stay it was noted that he had increasing neurocognitive changes with confusion. Patient apparently lives at home by himself. The social group worker got involved. They were concerned about patient going home with his level of confusion and unsafe discharge. His laboratory testing revealed a hemoglobin of 13.4 BUN creatinine is stable with a creatinine of 1.1 in his EGFR is 60. His urinalysis shows an elevated white blood cell count of 10 to 30 with urine bacteria. Previous urine cultures show E coli. During the emergency room workup and evaluation he had a CT scan of his abdomen and pelvis which was unchanged and neuroimaging which also was unchanged. At they were going to discharge him patient began continued to have more and more confusion and they were concerned about a safe discharge plan and elected to admit to the hospital because of his mental status changes and his urinary tract infection. FIELD CONTACT PERSON completed cognitive-communication assessment to assess current function and inform POC. Subjective Identification Type Name,ID Wristband Observations/Patient Pt sitting upright in chair upon ST entering room. Presentation Nurse and nursing aid report Pt with continued confusion this date. Pt exhibited difficulties answering some questions and would become distracted or start talking about something else. He appeared compliant with ST treatment by stating just ask me the question you have to. Objective Short Term Goals 1. Patient will utilize compensatory memory aids with 90% accuracy given max verbal and visual cues to increase orientation and functional recall/ participation within current setting. 2. Patient will complete 2-step commands with 90% accuracy given min verbal and visual cues to increase participation within current setting. 3. Patient will utilize memory book with 80% accuracy given max verbal and visual cues to increase orientation to current setting and improve short-term recall. Asbestos Abatement Worker Goals Patient will exhibit adequate cognitive-communication skills for discharge to next level of care with standby supervision using compensatory strategies as trained to facilitate safety and independence. Treatment Activities Education related to internal and external memory strategies, as well as assessment of problem solving through use of medication management task involving identifying errors in a pillbox. Assessment Patient Response to Poor Treatment Rehab Potential Poor Impairments Cognitive communication Identified Assessment of ST provided Pt with handouts on internal and external Improvement memory strategies with ST educating Pt on the strategies, such as saying outloud where he has placed items d/t him stating that he forgets where he will put things at times. During medication management task, Pt was observed to have poor comprehension of task requiring max verbal cues or directions with ST providing repetition, visual cues and directions provided in shorter, simpler sentences. Pt completed medication management task with 0% accuracy. Based on ST evaluation from yesterday and today's therapy session, Pt is at a high risk of making critical errors with tasks such as medication management, director of student financial services, and completion of office lead, as well as everyday tasks that require adequate skills in the areas of attention, immediate and delayed memory, and executive functioning. Pt also presents with decreased safety awareness and insight to current function. Pt will likely need 24/7 assist following discharge from current level of care given significant cognitive- communication impairment. ST is no longer warranted at this time d/t Pt provided education on memory compensatory strategies with difficulties comprehending and carrying over strategies. Reviewed with Goals Patient
--- NOTE | 2025-07-28 14:53 | OT.IP.TRT ---
Current Diagnoses Unspecified dementia, unspecified severity, without behavioral disturbance, psychotic disturbance, mood disturbance, and anxiety (07/27/25) Urinary tract infection, site not specified (07/27/25) Occupational Therapy Treatment Note M2 OT-IP Current Condition Start: 07/27/25 10:36 Freq: Status: Active Protocol: Document 07/27/25 10:36 ASHLEY (Rec: 07/27/25 11:03 BARBAR[facility] Desktop) Occupational Therapy Current Condition Current Condition Evaluation Date 07/27/25 Treatment Diagnosis UTI, acute metabolic encephalopathy, decreased self care Diagnosis Onset Date 07/26/25 M3 OT- IP Subjective and Pain Start: 07/27/25 10:36 Freq: Status: Active Protocol: Document 07/28/25 14:39 CCC (Rec: 07/28/25 14:53 CCC Desktop) OT- Subjective Occupational Therapy Visit Type Type Treatment Note Visit Start Time 14:04 Visit Stop Time 14:29 Occupational Therapy Visit Comments Patient Comments Pt agreed to do oral care while standing at the sink. Patient/Caregiver TO go home. Goals OT Pain Assessment Pain When Pain Assessed At Rest Pain Present Pain Present Denied Pain M4 OT- IP ADL's Start: 07/27/25 10:36 Freq: Status: Active Protocol: Document 07/28/25 14:39 CCC (Rec: 07/28/25 14:53 CCC Desktop) OT ADL-Grooming General Evaluation Grooming Ability Standby Assistance OT ADL-Oral Care General Eval Oral Care Ability Standby Assistance Comments Oral Care Comments Pt noted drooling after trying to brush his teeth and having difficulty controlling his secretions. Pt also did not actively brush his teeth. M5 OT- IP IADL's Start: 07/27/25 10:36 Freq: Status: Active Protocol: Document 07/27/25 10:36 ASHLEY (Rec: 07/27/25 11:03 [place]BAR[place] Desktop) OT-Instrumental Activities of Daily Living Deficits IADL Deficits Deficits Identified Home Safety Awareness Awareness of Need Decreased Awareness for Assistance at Home Ability to Problem Unable to Problem Solve Solve Emergency Situations Medication Management Medication Pt would benefit from supervision for safety. Management Comments Money Management Money Management Pt would benefit from supervision. Comments Meal Preparation Meal Preparation Pt reports he performs, needs assistance currently for Comments safety Curriculum Designer Curriculum Designer Caregiver Provides Assist Driving Driving Comments Pt reports he performs, needs assistance currently for safety M6 OT- IP Functional Cognition Start: 07/27/25 10:36 Freq: Status: Active Protocol: Document 07/28/25 14:39 [facility] (Rec: 07/28/25 14:53 [facility] Desktop) Cognitive Factors Limiting Selfcare Function Cognitive Ability Level of Alertness Alert Attention Span Capable of Focused Attention,Capable of Sustained Ability Attention Ability to Follow Able to Follow One Step Commands with Increased Time, Commands Able to Follow One Step Commands with Repetition Memory Description Short Term Impaired,Working Impaired Safety Awareness Underestimates Need for Assistance Cognitive Comments Cognitive Assessment Pt highly distracted and poor safety awareness and Comments needing MAX vc to follow commands. CGA/SIENA for balance and to help keep the FWW in front on him. Pt tends to push the FWW to the right. At one point pt trying to use the cane with right hand and pushing the FWW with left hand. Pt also very unaware of his deficits. M7 OT- IP Mobility and Balance Start: 07/27/25 10:36 Freq: Status: Active Protocol: Document 07/28/25 14:39 [facility] (Rec: 07/28/25 14:53 [facility] Desktop) OT-Transfer Assessment Sit to and From Stand Sit to and from Contact Guard Assistance,Minimal Assistance Stand Transfers Transfer Ability Contact Guard Assistance,Minimal Assistance Technique Transfer Destination Bed Transfer Technique Stand Step Pivot Devices Transfer Assistive Gait Belt,Straight Cane,Front Wheeled Walker Devices OT- Balance Assessment Sitting Balance and Reactions Static Sitting Fair Balance Ability Dynamic Sitting Poor Balance Ability Standing Balance and Reactions Static Standing Poor Balance Ability Dynamic Standing Poor Balance Ability M8 OT- IP Objective Assessments Start: 07/27/25 10:36 Freq: Status: Active Protocol: Document 07/27/25 10:36 ASHLEY (Rec: 07/27/25 11:03 ASHLEY Desktop) OT Gross Range of Motion Upper Extremity Range of Motion Assessment Within Functional Limits OT Strength Upper Extremity Strength Assessment Within Functional Limits Hand Forms Builder Strength Hand Dominance Right Comments Strength Comments Grossly pt's UE strength is 4/5 OT-Muscle Tone Assessment Muscle Tone WNL No OT Sensation Assessment Comments Summary Comments Pt has no sensory deficit complaints Edema Edema Absent M9 OT- IP Assessment and Plan Start: 07/27/25 10:36 Freq: Status: Active Protocol: Document 07/28/25 14:39 [facility] (Rec: 07/28/25 14:53 [facility] Desktop) OT Summary Assessment and Plan Potential Rehabilitation Fair Potential Analytic Complexity Moderate at Evaluation Summary OT Impairments Balance,Functional Cognition,Functional Mobility, Grooming,Dressing,Toileting,Bathing,Toilet Transfers, Shower Transfers,Activity Tolerance Progress Towards Slow Progress due to Medical Issues,Slow Progress due Goals to Cognition Assessment Summary Pt decreased safety awareness, and needing constant cues to safety and re-direction. Pt able to move with CGA/SIENA with FWW today which is improved from the MODA yesterday on OT eval. Noted much drooling after trying to brush his teeth, nursing notified. Pt will benefit from SNF to maximize level or independence for all ADL and mobility needs. Pt afterwards will need 24/ assist or placement- pending how pt progresses from his UTI and GI bleed. Goals Grooming Goal Standby Assistance Dressing Goal Standby Assistance Toileting Goal Standby Assistance Bathing Goal Standby Assistance,Grab Bars,Hand Held Shower Sprayer Toilet Transfer Goal Standby Assistance,Grab Bars Shower Transfer Goal Standby Assistance Frequency of Treatment Other frequency 5x/wk Treatment Plan OT Treatment Plan ADL Training,Functional Cognition Training,Functional Mobility,Therapeutic Exercises,Patient/Family Education ,Discharge Planning Discharge Recommendations OT Discharge SNF Rehab,LTAC Recommendations Transportation Needs Private Vehicle,Wheelchair/Cabulance at Discharge
--- NOTE | 2025-07-28 14:57 | PT.IIE ---
Current Diagnoses Unspecified dementia, unspecified severity, without behavioral disturbance, psychotic disturbance, mood disturbance, and anxiety (07/27/25) Urinary tract infection, site not specified (07/27/25) Surgical History (Last Reviewed 07/06/25 @ 16:20 by Elizabeth Pierre MD) History of basal cell carcinoma (BCC) excision (07/21/09) History of colon surgery History of colonoscopy with polypectomy (12/04/13) History of colonoscopy with polypectomy (07/20/17) History of lumbar fusion (06/07/15) History of squamous cell carcinoma excision (07/16/12) Status post epidural steroid injection (01/13/15) Status post Mohs surgery (04/27/17) Medical History (Last Updated 07/27/25 @ 07:41 by Yaniv Fontana MD) BCC (basal cell carcinoma of skin) (07/16/12) BPH w urinary obs/LUTS Chronic renal failure, stage 3 (moderate) Depression Elevated PSA Esophagitis Fracture of ulnar styloid GERD (gastroesophageal reflux disease) History of adenomatous polyp of colon 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) History of flexible sigmoidoscopy (06/18/14) Hypertension (04/13/11) Hypotension Iron deficiency anemia 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 Pt needs questions repeated, gets distracted when answering, and will begin to answer previous questions again forgetting that he has already answered. 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 Pt reports that his children, who live out of town, visit weekly and assist with housework. Social History Household Members none Living Arrangements House Number of Floors ( Two Floors Floors) Number of Stairs To Pt reports 12 steps to second floor with railing on R. Enter/Railing? Pt has 3 steps to enter house with no rails. Pt reports that he has to use both floors of his house. Home Environment Standard Height Toilet,Walk in Shower,Tub/Shower Doors Home Equipment Straight Cane,Hand Held Shower,Grab Bars In Shower Employment Status Retired M2 PT-IP Current Condition Start: 07/28/25 14:42 Freq: NEEDED Status: Active Protocol: Document 07/28/25 14:04 MB (Rec: 07/28/25 14:57 MB Desktop) Physical Therapy Current Condition Current Condition Evaluation Date 07/28/25 Treatment Diagnosis UTI, falls M3 PT-IP Subjective Start: 07/28/25 14:42 Freq: NEEDED Status: Active Protocol: Document 07/28/25 14:04 MB (Rec: 07/28/25 14:57 MB Desktop) Subjective Physical Therapy Visit Type Type Initial Evaluation Visit Start Time 14:04 Visit Stop Time 14:29 Number of GRAIN OPERATIONS MANAGER Visits 0 Physical Therapy Visit Comments Patient Comments Pt states that he wants to walk. Therapy Pain Assessment Pain When Pain Assessed At Rest Pain Present Pain Present Denied Pain M4 PT-IP Mobility and Gait Start: 07/28/25 14:42 Freq: NEEDED Status: Active Protocol: Document 07/28/25 14:04 MB (Rec: 07/28/25 14:57 MB Desktop) PT-Bed Mobility Assessment Rolling Type of Rolling Roll to Right Level of Assist Standby Assistance Supine to Sit Supine to Sit Standby Assistance Sit to Supine Sit to Supine Standby Assistance Scooting Scooting to Edge of Standby Assistance Bed Scooting Up and Down Standby Assistance in Bed PT-Transfer Assessment Sit to and From Stand Sit to and from Contact Guard Assistance,Minimal Assistance,1 Person Stand Assistance,Use of Upper Extremities Equipment Transfer Assistive Gait Belt,Straight Cane,Front Wheeled Walker Device Transfers Transfer Destination Bed Transfer Technique Ambulation Transfer Ability Level of Assist Contact Guard Assistance,Minimal Assistance,1 Person Assistance Comments Mobility Comments Pt has trouble following commands, is somewhat agitated with all commands and clarifications from PT, pushes walker away occ. Positive orthostatic hypotension with BP and HR in LUE: supine 125/67, 74; standing 102/58, 77; standing 1' 111/53, 77. Gait Assessment Gait Gait Assistance Contact Guard Assist,Minimum Assistance Required: Distance (Feet) 20 Able to Maintain Yes Weight Bearing Status During Gait Assistive Devices Assistive Device Gait Belt,Straight Cane,Front Wheeled Walker Orthotic/Prosthetic No Devices or Brace: Gait Deviations General Gait Pattern Decreased Stride Length,Decreased Feet Clearance, Festinating,Flexed Trunk,Lateral Trunk Lean,Narrow Based Gait Factors Limiting Gait Function Factors Limiting Decreased Activity Tolerance,Difficulty Following Gait Function Directions,Incoordination,Poor Balance,Poor Safety Awareness Comments Gait Comments 20'x8 in the room, mostly with RW and frequent rest breaks, more festination with cane in right hand and pt cannot clear feet when walking with the cane, pt tends to push walker to the side or step out of it with left foot and he is not receptive to cueing about feet placement. CGA to stand at sink to brush teeth though pt just puts toothpaste on toothbrush and moves to his mouth--he does not brush his teeth. He presents with low voice, uncontrolled secretions and festinating gait that may indicate an underlying neurological presentation. PT-Balance Assessment Sitting Balance and Reactions Static Sitting Good Balance Ability Dynamic Sitting Good Balance Ability Standing Balance and Reactions Static Standing Fair Balance Ability Dynamic Standing Fair Balance Ability Device Used RW, cane and CGA M5 PT-IP Objective Assessments Start: 07/28/25 14:42 Freq: NEEDED Status: Active Protocol: Document 07/28/25 14:04 MB (Rec: 07/28/25 14:57 MB Desktop) Orientation Orientation/Cognition Level of Alertness Confusional State Orientation Name,Birthday,Month,Date,Year Safety Awareness Decreased Safety Awareness Memory Description Short Term Impaired,Fdc Impaired Comments Low vocal tone Gross Range of Motion Upper Extremity ROM Impairments Defer to OT Lower Extremity ROM Assessment Bilaterally Impaired Impairments Functional leg length difference d/t severe scoliosis and pelvic obliquities Strength Lower Extremity Strength Assessment Bilaterally Impaired Comments Strength Comments Functional weakness with gait, worse on the right and functional foot drop/decreased toe off on the right more than the left Coordination Assessment Assessment Coordination NT, pt will not participate today Comments Sensation Assessment Comments Sensation Comments NT, pt will not participate today M6 PT-IP Treatment Start: 07/28/25 14:42 Freq: NEEDED Status: Active Protocol: Document 07/28/25 14:04 MB (Rec: 07/28/25 14:57 MB Desktop) Physical Therapy Treatment Education Education Provided Safety M7 PT-IP Assessment and Plan Start: 07/28/25 14:42 Freq: NEEDED Status: Active Protocol: Document 07/28/25 14:04 MB (Rec: 07/28/25 14:57 MB Desktop) PT Summary Assessment and Plan Potential Rehabilitation Poor Potential Status of Condition Unstable at Evaluation Summary Impairments ROM,Strength,Balance,Coordination,Cognition,Transfers, Gait,Activity Tolerance Assessment Summary Pt is an 85 y/o male adm with UTI, GI bleed and falls. He presents with orthostatic hypotension today as well as confusion. He is agitated with all attempts to ask questions and clarify by therapists today. Pt often contradicts himself: states he has been dizzy and then states that he hasn't, asks to use the cane and then asks PT to hold the cane and he uses the walker. Pt presents with severe scoliosis and pelvic obliquities and functional weakness greatest in right LE and ankle compared to the left with gait. Festination, inability to control secretions and low vocal tone may indicate an underlying degenerative neurological process. Today, pt is not a participating skilled therapy patient given agitation and decreased receptiveness but will give another attempt next date in case his cognition improves after treatment for UTI. SNF vs placement at d /c. Goals Bed Mobility Goal Independent Transfer Goal Standby Assistance,Front Wheeled Walker Gait Goal Standby Assistance,Front Wheel Walker Gait Distance 75 Other Goals 1-2 treatment trial Days to Meet Goals 2 Frequency of Treatment Frequency Of Once a Day Treatment Treatment Plan Physical Therapy Transfer Training,Gait Training,Therapeutic Exercise, Treatment Plan Balance Retraining,Discharge Planning Precautions Other Precautions Fall risk, agitated Recommendations To Nursing Amount of Assist 1 Person Assist Needed Discharge Recommendations Other Discharge SNF vs placement Recommendations Transportation Needs Wheelchair/Cabulance at Discharge - PT assist x1
--- NOTE | 2025-07-28 15:59 | CM.DPNOTE ---
DCP Continued: Reviewed EMR and team rounds for pt?s medical status. Per Provider, pt will need to be discharged only to 24/7 care whether in a facility or with family. Per PT/OT, recommending 24/7 memory care placement. Pt is not very directable which is concerning if he is a good candidate for rehab, would still recommend it if other clinical needs for SNF. SLUMS = 09/15. PROCESS DESIGN ENGINEER spoke with pt daughterDilma, (ph# [phone]) she states she is still in the process of touring facilities for both pt and his to move into. PROCESS DESIGN ENGINEER discussed Inpt status with daughter and she states she is still working on placement as she will not be available for 24/7 care. Dtr voiced frustration that pt has been declined to move into [facility] for the interim due to behaviors as this was always the plan until their denial this week. PROCESS DESIGN ENGINEER sent updated PT/OT and Progress Notes to [facility] [employer] to assist with pt placement via secure email. Plan: Pending senior living memory care placement coordination with pt daughterDilma. CM Team will continue to follow for coordination of discharge plans. NNEKA Pugh
--- NOTE | 2025-07-28 17:36 | PC.NURSE ---
Patient's amaya catheter removed at 10 a.m. He has had poor po intake today but not voided by 1730 pm. Bladder scan results =173ml. Patient declined urged to void. MD Fontana notified and ordered to encourage po intake and monitor for now, not straight cath. Continuous monitoring.
[2025-07-28 21:00] VITALS: BP 125/70; PULSE 84; RESP 18; TEMP 36.8; O2SAT 98
[2025-07-29] MEDS: LIDOCAINE 2% (GLYDO) 6 ML GEL TOP (05:49)
[2025-07-29 08:00] VITALS: BP 119/66; PULSE 68; RESP 12; TEMP 37; O2SAT 98
--- NOTE | 2025-07-29 09:13 | PM.PN.IH.1 ---
Subjective Subjective Date Patient Seen: 07/29/25 Time Patient Seen: 09:13 Interval history: Patient seen this morning discussed care with nurse. Nursing staff reports decreased urine output with urinary obstruction with bladder scan greater than 500 cc in and out catheter was done throughout the night. Patient states it was quite uncomfortable. Patient's blood pressure is better today 119/66. He is afebrile. Laboratory tests and urine cultures previously reviewed. No recent lab results. He is afebrile his oxygen sat is 98%. Patient is confused with discussions this morning. He says he is worried about his . In where he is going to go next. Exam Vital Signs (past 8 hours): - 07/29/25 08:00 Temperature 98.6 F Pulse Rate 68 Respiratory Rate 12 Blood Pressure 119/66 Pulse Oximetry 98 Oxygen Flow Rate 0 Oxygen Delivery Method Room Air Oxygen Flow Rate 0 Narrative Exam Narrative: Gen.: Alert no apparent distress confused HEENT: Pupils equal round and reactive or mucosa is moist Cardio: S1-S2 regular rate Respiratory: Lungs are clear to auscultation no wheezes or crackles normal respiratory effort. Abdomen: Soft nontender Extremities: Full range of motion Objective Labs 07/27/25 04:55 07/27/25 04:55 [facility] Medical History (Updated 07/27/25 @ 07:41 by Yaniv Fontana MD) Major neurocognitive disorder Hypotension Fracture of ulnar styloid Depression Stool incontinence BPH w urinary obs/LUTS Iron deficiency anemia Esophagitis Elevated PSA Chronic renal failure, stage 3 (moderate) History of adenomatous polyp of colon Hypertension (04/13/11) History of flexible sigmoidoscopy (06/18/14) 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) SCCA (squamous cell carcinoma) of skin (07/21/09) BCC (basal cell carcinoma of skin) (07/16/12) Scoliosis of lumbosacral spine Spinal stenosis, 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 GERD (gastroesophageal reflux disease) 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) Surgical History History of colon surgery History of colonoscopy with polypectomy (07/20/17) History of colonoscopy with polypectomy (12/04/13) Status post Mohs surgery (08/11/17) History of basal cell carcinoma (BCC) excision (07/21/09) History of squamous cell carcinoma excision (07/16/12) History of lumbar fusion (06/07/15) Status post epidural steroid injection (01/13/15) Social History household members: none occupational status: previously employed Smoking Status: Never smoker alcohol intake: never substance use type: does not use Assessment & Plan Assessment and plan (1) Major neurocognitive disorder: Status: Chronic (2) Acute UTI: Status: Acute Plan Acute urinary retention. Patient with urinary retention. He is on Flomax. Bladder scan showed 700 cc in his bladder. Required an in and out catheter. Continues to be a problem. If continued intermittent White catheter needs we will continue down that pathway with addition of Flomax. Diarrhea with hematochezia patient no further episodes of significant diarrhea or blood. Hemoglobin hematocrit stable. Continue to monitor for further symptoms. At this point I think back to baseline. Urinary tract infection. Patient's urine cultures show no growth. Continue with antibiotics. Dementia with acute mental status changes due to urinary tract infection. Continues to be a problem. With confusion he is not safe to discharge home by himself as far as driving and personal care working with social media specialist daughter for next level of care placement. Hypotension hypertension. Patient's blood pressure stable he is on fludrocortisone in the past. Continue to monitor signs for hypotension with ambulation. Disposition and plan. Discharge to correction facility and/or assisted living due to cognitive changes. Time-Based Coding :: [TOTAL MINUTES] spent with patient and on the chart (including review of chart, obtaining history, exam, reviewing outside data, placing orders, documenting exam and treatment plan, and counseling patient) on [DATE]. PROFEE Room Service Waiter Document charge(s): Yes Charge Codes Subsequent inpatient/observation care: [id number]
[2025-07-29] MEDS: SODIUM CHLORIDE 0.9% FLUSH 10 ML IV ×2 (09:14→21:10)
[2025-07-29] MEDS: TAMSULOSIN 0.4 MG CAPSULE PO ×2 (09:14→21:10)
[2025-07-29] MEDS: ENOXAPARIN 40 MG/0.4 ML SYRINGE SUBCUT (09:14)
[2025-07-29] MEDS: TRIMETH/SULFA 160/800 (DS) TABLET 1 TAB PO ×2 (09:14→21:10)
--- NOTE | 2025-07-29 11:29 | CM.DPC ---
Addendum entered by Trista Zhang RN 07/29/25 15:51: Family is able to transport patient Sunday upon discharge. Addendum entered by Trista Zhang RN 07/29/25 14:50: Per Arash Gilbert, [facility], they can accept patient 07/31/2025. #[phone]. Fx. [phone]. Patient profile sent via [employer]. Addendum entered by Trista Zhang RN 07/29/25 14:20: Facesheet and PT eval sent to . Original Note: CM spoke with patient's DRTDilma. Per Dilma, her and her brother are trying to place patient and his at [facility]. CM to follow up in AM.
--- NOTE | 2025-07-29 11:50 | OT.IP.TRT ---
Current Diagnoses Unspecified dementia, unspecified severity, without behavioral disturbance, psychotic disturbance, mood disturbance, and anxiety (07/27/25) Urinary tract infection, site not specified (07/27/25) Occupational Therapy Treatment Note M2 OT-IP Current Condition Start: 07/27/25 10:36 Freq: Status: Active Protocol: Document 07/27/25 10:36 ASHLEY (Rec: 07/27/25 11:03 ASHLEY Desktop) Occupational Therapy Current Condition Current Condition Evaluation Date 07/27/25 Treatment Diagnosis UTI, acute metabolic encephalopathy, decreased self care Diagnosis Onset Date 07/26/25 M3 OT- IP Subjective and Pain Start: 07/27/25 10:36 Freq: Status: Active Protocol: Document 07/29/25 11:48 CCC (Rec: 07/29/25 11:58 CCC Desktop) OT- Subjective Occupational Therapy Visit Type Type Treatment Note Visit Start Time 11:30 Visit Stop Time 11:50 Occupational Therapy Visit Comments Patient Comments Pt wanting to get up to walk and states already brushed his teeth, used the toilet , and not wanting to shower . Patient/Caregiver TO go home. Goals OT Pain Assessment Pain When Pain Assessed At Rest Pain Present Pain Present Denied Pain M4 OT- IP ADL's Start: 07/27/25 10:36 Freq: Status: Active Protocol: Document 07/28/25 14:39 CCC (Rec: 07/28/25 14:53 CCC Desktop) OT ADL-Grooming General Evaluation Grooming Ability Standby Assistance OT ADL-Oral Care General Eval Oral Care Ability Standby Assistance Comments Oral Care Comments Pt noted drooling after trying to brush his teeth and having difficulty controlling his secretions. Pt also did not actively brush his teeth. M5 OT- IP IADL's Start: 07/27/25 10:36 Freq: Status: Active Protocol: Document 07/27/25 10:36 ASHLEY (Rec: 07/27/25 11:03 ASHLEY Desktop) OT-Instrumental Activities of Daily Living Deficits IADL Deficits Deficits Identified Home Safety Awareness Awareness of Need Decreased Awareness for Assistance at Home Ability to Problem Unable to Problem Solve Solve Emergency Situations Medication Management Medication Pt would benefit from supervision for safety. Management Comments Money Management Money Management Pt would benefit from supervision. 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 VC to place his hand on the handle of the FWW and insists on holding the front of the FWW with his left hand instead. Pt insists that he is fine and wanting to walk more but as he tires the FWW in farther in front of him and to the right and needing cues to stay inside the FWW. Pt needing vc to push up from the bed to stand. M7 OT- IP Mobility and Balance Start: 07/27/25 10:36 Freq: Status: Active Protocol: Document 07/29/25 11:48 [facility] (Rec: 07/29/25 11:58 [facility] Desktop) OT- Bed Mobility Assessment Supine to Sit Supine to Sit Assist Standby Assistance Sit to Supine Sit to Supine Assist Standby Assistance OT-Transfer Assessment Sit to and From Stand Sit to and from Standby Assistance,Contact Guard Assistance Stand Technique Transfer Destination Bed Transfer Technique Stand Step Pivot Devices Transfer Assistive Gait Belt,Front Wheeled Walker Devices Comments Mobility Comments CGA to close SBA for mobility needs. As pt tires needing more assist due to decreased balance and tends to bump into objects on the left side of the walker. OT- Balance Assessment Sitting Balance and Reactions Static Sitting Good Balance Ability Dynamic Sitting Fair Balance Ability Standing Balance and Reactions Static Standing Fair Balance Ability Dynamic Standing Poor Balance Ability M8 OT- IP Objective Assessments Start: 07/27/25 10:36 Freq: Status: Active Protocol: Document 07/27/25 10:36 ASHLEY (Rec: 07/27/25 11:03 ASHLEY Desktop) OT Gross Range of Motion Upper Extremity Range of Motion Assessment Within Functional Limits OT Strength Upper Extremity Strength Assessment Within Functional Limits Hand Manager Residential Strength Hand Dominance Right Comments Strength Comments Grossly pt's UE strength is 4/5 OT-Muscle Tone Assessment Muscle Tone WNL No OT Sensation Assessment Comments Summary Comments Pt has no sensory deficit complaints Edema Edema Absent M9 OT- IP Assessment and Plan Start: 07/27/25 10:36 Freq: Status: Active Protocol: Document 07/29/25 11:48 [facility] (Rec: 07/29/25 11:58 [facility] Desktop) OT Summary Assessment and Plan Potential Rehabilitation Fair Potential Analytic Complexity Moderate at Evaluation Summary OT Impairments Balance,Functional Cognition,Functional Mobility, Grooming,Dressing,Toileting,Bathing,Toilet Transfers, Shower Transfers,Activity Tolerance Progress Towards Slow Progress due to Cognition Goals Assessment Summary Pt today able to get into and out of the bed with SBA and needing CGA/close SBA with the FWW. Pt still having decreased safety awareness and cues to swallow often as he tends to drool as has difficulty to control his saliva. Pt appears to be getting closer to his baseline mobilizing per pt. Pt will benefit from 24/7 assist or placement- per chart family looking into placement for pt. Goals Grooming Goal Standby Assistance Dressing Goal Standby Assistance Toileting Goal Standby Assistance Bathing Goal Standby Assistance,Grab Bars,Hand Held Shower Sprayer Toilet Transfer Goal Standby Assistance,Grab Bars Shower Transfer Goal Standby Assistance Days to Meet Goals 7 Frequency of Treatment Other frequency 5x/wk Treatment Plan OT Treatment Plan ADL Training,Functional Cognition Training,Functional Mobility,Therapeutic Exercises,Patient/Family Education ,Discharge Planning Discharge Recommendations OT Discharge Home with 24/7 Assist Available,Home Health,LTAC Recommendations Transportation Needs Private Vehicle,Wheelchair/Cabulance at Discharge
--- NOTE | 2025-07-29 18:17 | PC.NURSE ---
Patient is unable to void during the day after night JAY JAY lin cath'd patient at 0600 this a.m. At approximately 2 pm bladder scan results 190cc and patient denies the urge to void. MD Gonzalez notified, and instructed continuous monitoring, straight cath for >500cc. At 1800 this evening patient attempted to use the urinal sitting, standing and over the toilet w/o relief after feeling the urge to void. Bladder scan =539 ml and patient is straight cath'd with coude catheter for 450cc or dark yellow urine.
[2025-07-29 19:49] VITALS: BP 126/61; PULSE 73; RESP 18; TEMP 36.6; O2SAT 97
[2025-07-29] MEDS: guaiFENesin Solution 100 MG/5 ML UDC PO (21:10)
[2025-07-30 08:00] VITALS: BP 134/76; PULSE 73; RESP 15; TEMP 36.7; O2SAT 97
--- NOTE | 2025-07-30 08:25 | P.PN_ITS ---
Subjective Subjective Date Patient Seen: 07/30/25 Time Patient Seen: 08:25 Interval history: Patient dosing this morning Pretty much uneventful day yesterday. Required replacement of his White catheter as he just could not void on his own retained greater than 400-500 cc in his bladder over and over again. Has continued on tamsulosin since admission Plan at this time is discharge probably tomorrow to [facility], with family to transport. Spouse will also apparently be moving to that facility. (she is currently at [facility]) Blood pressure stable without persistent hypotension or significant hypertension on the low-dose amlodipine Exam Vital Signs (past 8 hours): Oxygen Delivery Method Room Air Oxygen Flow Rate 0 Objective Labs 07/27/25 04:55 07/27/25 04:55 [facility] Medical History (Updated 07/27/25 @ 07:41 by Yaniv Fontana MD) Major neurocognitive disorder Hypotension Fracture of ulnar styloid Depression Stool incontinence BPH w urinary obs/LUTS Iron deficiency anemia Esophagitis Elevated PSA Chronic renal failure, stage 3 (moderate) History of adenomatous polyp of colon Hypertension (04/13/11) History of flexible sigmoidoscopy (06/18/14) 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) SCCA (squamous cell carcinoma) of skin (07/21/09) BCC (basal cell carcinoma of skin) (07/16/12) Scoliosis of lumbosacral spine Spinal stenosis, 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 GERD (gastroesophageal reflux disease) 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 GI-no evidence of GI bleeding or significant diarrhea at this time. I believe there is no active GI issue 2. UTI-patient was significant urinary retention which certainly does put him at higher risk of UTI. Cultures negative thus far. Complete antibiotic therapy poorly 3. Hypertension-continue low-dose amlodipine. I have to believe that the hypotension he was experiencing was due to medication mismanagement at home given his evaluation here in the hospital he is completely unable to manage his own medications 4. Major cognitive disorder/dementia-plan now is discharged to a care facility closer to family in [place]. This makes great deal of sense. He should be okay for discharge tomorrow 5. Urinary retention-likely due to BPH. Continue with tamsulosin for the next several weeks with catheter in place and consider moving catheter with voiding trial at that time. He will need to establish care with Urology somewhere in the [place] area Time-Based Coding :: [TOTAL MINUTES] spent with patient and on the chart (including review of chart, obtaining history, exam, reviewing outside data, placing orders, documenting exam and treatment plan, and counseling patient) on [DATE]. PROFEE General Manager [employer] Document charge(s): Yes Charge Codes Subsequent inpatient/observation care: [id number]
[2025-07-30] MEDS: TAMSULOSIN 0.4 MG CAPSULE PO ×2 (10:03→20:57)
[2025-07-30] MEDS: ENOXAPARIN 40 MG/0.4 ML SYRINGE SUBCUT (10:04)
[2025-07-30] MEDS: SODIUM CHLORIDE 0.9% FLUSH 10 ML IV ×2 (10:04→20:58)
[2025-07-30] MEDS: TRIMETH/SULFA 160/800 (DS) TABLET 1 TAB PO ×2 (10:04→20:57)
--- NOTE | 2025-07-30 11:56 | PT.IPTN ---
Current Diagnoses Unspecified dementia, unspecified severity, without behavioral disturbance, psychotic disturbance, mood disturbance, and anxiety (07/27/25) Urinary tract infection, site not specified (07/27/25) Physical Therapy Treatment Note M2 PT-IP Current Condition Start: 07/28/25 14:42 Freq: NEEDED Status: Active Protocol: Document 07/28/25 14:04 MB (Rec: 07/28/25 14:57 MB Desktop) Physical Therapy Current Condition Current Condition Evaluation Date 07/28/25 Treatment Diagnosis UTI, falls M3 PT-IP Subjective Start: 07/28/25 14:42 Freq: NEEDED Status: Active Protocol: Document 07/30/25 11:43 AB (Rec: 07/30/25 11:55 AB Laptop) Subjective Physical Therapy Visit Type Type Treatment Note Visit Start Time 11:15 Visit Stop Time 11:42 Number of CORRECTIONS NURSE Visits 1 Physical Therapy Visit Comments Patient Comments Patient initially stated he would like therapy later today, but was agreeable when made aware that would not likely be an option this day. Patient reports having no pain start of session. Therapy Pain Assessment Pain When Pain Assessed At Rest Pain Present Pain Present Allowed to Sleep M4 PT-IP Mobility and Gait Start: 07/28/25 14:42 Freq: NEEDED Status: Active Protocol: Document 07/30/25 11:43 AB (Rec: 07/30/25 11:55 AB Laptop) PT-Bed Mobility Assessment Rolling Type of Rolling Roll to Right Level of Assist Standby Assistance Supine to Sit Supine to Sit Standby Assistance Scooting Scooting to Edge of Standby Assistance Bed PT-Transfer Assessment Sit to and From Stand Sit to and from Contact Guard Assistance,1 Person Assistance,Use of Stand Upper Extremities Equipment Transfer Assistive Gait Belt,Front Wheeled Walker Device Orthotic/Prosthetic No Devices or Brace: Comments Mobility Comments Verbal and tactile cues for UE positioning for sit to and from stand. Gait Assessment Gait Gait Assistance Contact Guard Assist Required: Distance (Feet) 59 Able to Maintain Yes Weight Bearing Status During Gait Assistive Devices Assistive Device Gait Belt,Front Wheeled Walker Orthotic/Prosthetic No Devices or Brace: Gait Deviations General Gait Pattern Decreased Stride Length,Decreased Feet Clearance, Festinating,Flexed Trunk,Lateral Trunk Lean,Narrow Based Gait Factors Limiting Gait Function Factors Limiting Decreased Activity Tolerance,Difficulty Following Gait Function Directions,Incoordination,Poor Balance,Poor Safety Awareness Comments Gait Comments Patient ambulated with FWW CGA 59 feet and 30 feet, reached for foot board of bed 2 X during ambulation and stepped out side of FWW 2-3 X, but for most of the session was able to remain centered within the FWW. Increased verbal cues required for backing to chair, for alignment, to actually back to chair, and to reach back for chair prior to sitting. 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 Impaired Comments Low vocal tone Gross Range of Motion Upper Extremity ROM Impairments Defer to OT Lower Extremity ROM Assessment Bilaterally Impaired Impairments Functional leg length difference d/t severe scoliosis and pelvic obliquities Strength Lower Extremity Strength Assessment Bilaterally Impaired Comments Strength Comments Functional weakness with gait, worse on the right and functional foot drop/decreased toe off on the right more than the left Coordination Assessment Assessment Coordination NT, pt will not participate today Comments Sensation Assessment Comments Sensation Comments NT, pt will not participate today M6 PT-IP Treatment Start: 07/28/25 14:42 Freq: NEEDED Status: Active Protocol: Document 07/30/25 11:43 AB (Rec: 07/30/25 11:55 AB Laptop) Physical Therapy Treatment Exercises Knee ROM Measurement Seated LAQ, hip flexion, hip add, standFWW november Heel r Other Treatments Other Treatment Assist with stabilizing FWW with heel raise as patient Performed performs with inc force making the FWW unstable M7 PT-IP Assessment and Plan Start: 07/28/25 14:42 Freq: NEEDED Status: Active Protocol: Document 07/30/25 11:43 AB (Rec: 07/30/25 11:55 AB Laptop) PT Summary Assessment and Plan Potential Rehabilitation Poor Potential Status of Condition Unstable at Evaluation Summary Impairments ROM,Strength,Balance,Coordination,Cognition,Transfers, Gait,Activity Tolerance Assessment Summary Patient agreeable this session, but did require increased cues when backing to chair and occ steps out side of walker and reaches for foot of bed when using walker to ambulate around corner of bed. Patient reports having no pain end of session. Patient left in chair, chair alarm in place and call light on table positioned in front of patient. Patient made aware that he must remain in chair, and a nurse must assist when he would like to stand up/walk. Patient able to identify button cassandra consultant light used to call nurse. Goals Bed Mobility Goal Independent Transfer Goal Standby Assistance,Front Wheeled Walker Gait Goal Standby Assistance,Front Wheel Walker Gait Distance 75 Other Goals 1-2 treatment trial Days to Meet Goals 1 Frequency of Treatment Frequency Of Once a Day Treatment Treatment Plan Physical Therapy Transfer Training,Gait Training,Therapeutic Exercise, Treatment Plan Balance Retraining,Discharge Planning Precautions Other Precautions Fall risk, agitated Recommendations To Nursing Amount of Assist 1 Person Assist Needed Discharge Recommendations Other Discharge SNF vs placement Recommendations Transportation Needs Wheelchair/Cabulance at Discharge - PT assist x1
--- NOTE | 2025-07-30 18:33 | PC.NURSE ---
Noted with help of PCT Ana that pt has not had a recorded BM since admission on 07/26. Called MD Conroy, received verbal order for bowel meds (see orders/MAR).
[2025-07-30 20:49] VITALS: BP 100/64; PULSE 71; RESP 18; TEMP 35.9; O2SAT 97
[2025-07-30] MEDS: DOCUSATE 100 MG CAPSULE 200 MG PO (20:57)
--- NOTE | 2025-07-31 07:37 | P.DS_ITS ---
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 Presented to the emergency department with concerns about blood in his stool and diarrhea. Patient had laboratory testing done CT imaging and urinalysis. During his hospital stay it was noted that he had increasing neurocognitive changes with confusion. Patient apparently lives at home by himself. The social human services assistants got involved. They were concerned about patient going home with his level of confusion and unsafe discharge. His laboratory testing revealed a hemoglobin of 13.4 BUN creatinine is stable with a creatinine of 1.1 in his EGFR is 60. His urinalysis shows an elevated white blood cell count of 10 to 30 with urine bacteria. Previous urine cultures show E coli. During the emergency room workup and evaluation he had a CT scan of his abdomen and pelvis which was unchanged and neuroimaging which also was unchanged. At they were going to discharge him patient began continued to have more and more confusion and they were concerned about a safe discharge plan and elected to admit to the hospital because of his mental status changes and his urinary tract infection. {from Dr. Gonzalez's H&P} Discharge Providers Provider Date of admission: 07/27/25 11:18 Discharge Date: 07/31/25 Primary care physician: Yaniv Fontana MD Consults: 07/26/25 10:18 [place] [facility] [place] Comment: Superintendent Meters Consult needed for:: Other reason (Comment) Comment: [place] [facility], multiple visits. Living situation in flux 07/27/25 07:36 Consult to Discharge Planning Routine Comment: Unsafe at home/independent 07/27/25 07:42 Consult to Occupational Therapy Evaluate & Treat Comment: Major neurocognitive disorder Physician Instructions: Evaluate and treat Consult to Physical Therapy Evaluate & Treat Comment: Physician Instructions: Evaluate and Treat Consult to Speech Therapy Evaluate & Treat Comment: Major neurocognitive disorder Physician Instructions: Evaluate and treat 07/28/25 09:36 Consult to Pharmacy Routine Comment: High fall risk 07/29/25 10:49 Consult to Pharmacy Routine Comment: high fall risk Discharge provider: Yaniv Fontana MD Summary Hospital Course Discharge Diagnosis: 1. Dementia, probably Alzheimer's type 2. Adult failure to thrive 3. Hypertension 4. 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 Chronic renal failure stage 3 6. Metabolic encephalopathy Hospital Course: Patient was admitted as above over concerns of possible GI bleed some altered mental status and maybe UTI. He required White catheter placement in the emergency department. Patient's blood counts were stable and he showed no evidence of any sort of GI bleeding during his hospitalization. It was felt as though his symptoms are more likely coming from a urinary source rather than bowel source and no further investigation regarding possible GI bleeding was undertaken Patient showed abnormalities with his urinalysis and required White catheter placement for drainage of his bladder. Subsequently no urine culture growth was detected. Attempts were made to remove his White catheter but he still was unable to completely empty his bladder retaining in excess of 500 cc in his bladder repeatedly. White catheter was then replaced and remains in place at time of discharge. He was continued on his outpatient tamsulosin for the duration of his hospitalization. He will need urology follow-up as an outpatient Patient's blood pressure was initially quite high he was started on super low- dose amlodipine and had his fludrocortisone which have been started for hypotension (now, I believe the hypotension was due to medication mismanagement at home). Blood pressure came down nicely averaging in the 110-120 range systolic with 2.5 mg of amlodipine Patient continued to show evidence of significant cognitive decline. Working with skilled therapies he showed inability to manage his home medications or any other complex tasks. This may explain some of his issues with his blood pressure over the last several months and also may explain his diarrhea if he is unable to manage his oral intake proper food sources foods etcetera He was not felt to be safe to return to independent living and consultation made with patient's family and he will be discharged to a care facility closer to patient's family in [place], [place] Status at Discharge Cognitive/behavioral status at discharge: confused Functional status at discharge: uses cane/walker Overall status at discharge: patient is not back to baseline Time Spent with Patient Time spent: Greater than 30 minutes Exam Vital Signs (past 8 hours): Oxygen Delivery Method Room Air Oxygen Flow Rate 0 Objective Labs 07/27/25 04:55 07/27/25 04:55 [facility] Medical History Major neurocognitive disorder Hypotension Fracture of ulnar styloid Depression Stool incontinence BPH w urinary obs/LUTS Iron deficiency anemia Esophagitis Elevated PSA Chronic renal failure, stage 3 (moderate) History of adenomatous polyp of colon Hypertension (04/13/11) History of flexible sigmoidoscopy (06/18/14) 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) SCCA (squamous cell carcinoma) of skin (07/21/09) BCC (basal cell carcinoma of skin) (07/16/12) Scoliosis of lumbosacral spine Spinal stenosis, 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 GERD (gastroesophageal reflux disease) 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) Surgical History History of colon surgery History of colonoscopy with polypectomy (07/20/17) History of colonoscopy with polypectomy (12/04/13) Status post Mohs surgery (04/27/17) History of basal cell carcinoma (BCC) excision (07/21/09) History of squamous cell carcinoma excision (07/16/12) History of lumbar fusion (06/07/15) Status post epidural steroid injection (01/13/15) Social History household members: none occupational status: previously employed Smoking Status: Never smoker alcohol intake: never substance use type: does not use Discharge Plan Discharge Plan Patient Disposition: [facility] Other facility: [facility] Consult as needed: Dental, Hearing, Mental health, Podiatry and Vision Discharge orders & Medications Prescriptions: New amlodipine 5 mg Tablet 2.5 mg PO DAILY Qty: 30 0RF sulfamethoxazole-trimethoprim 800-160 mg Tablet 1 tab PO BID Qty: 10 0RF Rx Instructions: Last dose pm 08/01/2025 Continued aspirin 81 MG tablet,delayed release (DR/EC) 81 mg PO QDAY Qty: 0 omeprazole 40 mg capsule,delayed release(DR/EC) 40 mg PO BID Qty: 180 3RF quetiapine 25 mg tablet 25 mg PO BEDTIME Qty: 90 3RF tamsulosin [Flomax] 0.4 mg capsule 0.4 mg PO BID Qty: 180 3RF Discontinued fludrocortisone 0.1 mg tablet 0.1 mg PO DAILY Qty: 90 3RF Follow up/Referrals: Yaniv Fontana MD [Primary Care Provider, Internal Medicine] Discharge Health Status Multidrug resistant organism: No MDRO Precautions: [place] Diet/Activity/Treatments Diet: Diet as Tolerated Liquid consistency: Normal/Thin Food texture: Regular Catheter: 2-way White Catheter comment: Catheter to remain in place until cleared by U[facility] Rehab type: Occupational therapy and Speech therapy Visit Report/Discharge Packet Stand Alone Forms: Patient Portal/API Discharge Data Primary Care Provider: Yaniv Fontana PROFEE Charge Codes Discharge inpatient/observation: [id number]
[2025-07-31 08:16] VITALS: BP 149/80; PULSE 76; RESP 15; TEMP 36.6; O2SAT 100
--- NOTE | 2025-07-31 08:39 | PC.NURSE ---
Pt refused meds; MD and Coord aware. Pt refusing to sit down; attempted to redirect; MD and Coord aware.
--- NOTE | 2025-07-31 10:28 | CM.DPC ---
DCP Cont. Reviewed EMR and team rounds for pt's medical status and updates. Pt has been medically cleared for d/c today to a memory care facility that the family has secured in [place]. They will transport him at 2:00pm today. D/C clinicals will be faxed to the community once available. No further CM d/c needs are identified at this time.
--- NOTE | 2025-07-31 15:35 | PC.NURSE ---
TYREL Ross removed PIV, pt tolerated well. JAY JAY Catherine helped patient dress and get into wheelchair. Pt confused but cooperative. All VSWNL. Pt family member arrived; stated that pt was not discharging directly to facility but would be returning home with family members for the night and then going to facility following day. Contacted MD Fontana re: medications for morning of 08/01 as new prescriptions were being transferred directly to facility. MD Fontana entered prescriptions for [facility] [place]. Pt family member requested change White bag to leg bag; changed pt's bag to leg bag, provided White bag for nighttime use. Provided discharge education on catheter timing, follow up with urology, medications, and cognitive abilities. Pt and family member stated all questions answered. All belongings with patient; no medications in drawer or safe or pharmacy. Pt escorted via WC by TYREL Ross with family member to [facility].
== END 2025-07-31 14:42 | DRG 56 ==
LOC: ED 16:07 → AC 16:09
PROVIDERS: Admitting Provider Family Medicine; Emergency Provider Emergency Medicine; Family Provider Internal Medicine; PCP Internal Medicine; Referring Provider Emergency Medicine; Visit Provider Internal Medicine
DX: G30.9 Alzheimer's disease, unspecified (principal); G93.41 Metabolic encephalopathy; N13.8 Other obstructive and reflux uropathy; I95.9 Hypotension, unspecified; G51.0 Bell's palsy; N40.1 Benign prostatic hyperplasia with lower urinary tract symptoms; R19.7 Diarrhea, unspecified; F02.80 Dementia in other diseases classified elsewhere, unspecified severity, without behavioral disturbance, psychotic disturbance, mood disturbance, and anxiety; R62.7 Adult failure to thrive; I12.9 Hypertensive chronic kidney disease with stage 1 through stage 4 chronic kidney disease, or unspecified chronic kidney disease; N18.30 Chronic kidney disease, stage 3 unspecified; K21.9 Gastro-esophageal reflux disease without esophagitis; Z68.27 Body mass index [BMI] 27.0-27.9, adult; Z91.148 Patient's other noncompliance with medication regimen for other reason
CPT/HCPCS: 36415; 70450; 74177; 80053; 81003; 81015; 85025; 85610; 85730; 86850; 86900; 86901; 87086; 92507; 92523; 96365; 97110; 97129; 97161; 97166; 97530; 97535; 99284; G0378; J0696; J1650; J7050